=== PATIENT | female | born 1995 | race Caucasian/White ===

== ENCOUNTER → 2019-07-04 | Outpatient (CLI) | payer SELFPAY | PROVIDERS: Family Provider Nurse Practitioner Family; Visit Provider Nurse Practitioner Family | DX: N63.0 Unspecified lump in unspecified breast (principal) | CPT/HCPCS: 77066 ==

== ENCOUNTER 2019-08-03 16:37 | Outpatient (CLI) | payer OTHER, SELFPAY ==
[2019-08-03 17:28] LABS: Thyroid Stimulating Hormone 1.89 uIU/mL (0.27-4.20)
== END 2019-08-03 16:38 | disposition home or self-care (01) ==
PROVIDERS: Family Provider Nurse Practitioner Family; PCP Nurse Practitioner Family; Visit Provider Nurse Practitioner Family
DX: E03.9 Hypothyroidism, unspecified (principal)
CPT/HCPCS: 84443

== ENCOUNTER 2019-10-20 12:06 | Outpatient (CLI) | payer OTHER, SELFPAY ==
[2019-10-20 12:57] LABS: Thyroid Stimulating Hormone 3.02 uIU/mL (0.27-4.20)
== END 2019-10-20 12:07 | disposition home or self-care (01) ==
LOC: LAB 12:07
PROVIDERS: Family Provider Nurse Practitioner Family; PCP Nurse Practitioner Family; Visit Provider Nurse Practitioner Family
DX: E03.9 Hypothyroidism, unspecified (principal)
CPT/HCPCS: 36415; 84443

== ENCOUNTER 2019-12-13 07:54 | Outpatient (CLI) | payer OTHER, SELFPAY ==
[2019-12-13 08:18] LABS: Hemoglobin 13.8 g/dL (11.5-15.3); Mean Corpuscular HGB Conc 32.1 g/dL (30.0-36.0); Mean Corpuscular Volume 90.3 fL (81-99); Mean Platelet Volume 9.4 fL (7.4-10.4); Platelet Count 335 10^3/cmm (130-400); Red Blood Count 4.76 10^6/uL (4.1-5.3); Red Cell Distribution Width 13.2 % (12.1-15.1)
[2019-12-13 08:40] LABS: Alanine Aminotransferase 10 U/L (0-33); Albumin Level 3.8 g/dL (3.5-5.2); Alkaline Phosphatase 77 IU/L (35-105); Aspartate Amino Transferase 11 U/L (0-32); Blood Urea Nitrogen 11 mg/dL (6-20); Calcium 9.6 mg/dL (8.5-10.5); Carbon Dioxide 26 mmol/L (22-29); Chloride 101 mmol/L (98-107); Globulin 3.2 g/dL (1.3-4.6); Glomerular Filtration Rate 101.1 mL/min (90-130); Glucose 92 mg/dL (65-115); Magnesium 1.9 mg/dL (1.7-2.3); Osmolality Calculated 280 mOsm/kg (285-295); Sodium 137 mmol/L (136-145); Thyroid Stimulating Hormone 4.03 uIU/mL (0.27-4.20); Total Bilirubin 0.2 mg/dL (0.15-1.2)
[2019-12-13 08:41] LABS: Estmated Average Glucose 100; Hemoglobin A1C 5.1 % (4.0-6.0)
[2019-12-13 10:00] LABS: Absolute Segmented Neutrophil 6.5 10/cmm (1.6-7.1); Band Neutrophils Absolute 0.1 10^3/cmm (0.0-1.2); Lymphocytes 31 %; Segmented Neutrophils 65 %; Total Cells Counted 100 (0-100)
[2019-12-13 10:01] LABS: Absolute Neutrophil 6.6 10^3/cmm (1.4-6.5); Lymphocytes Absolute 3.2 10^3/cmm (1.2-3.4); Monocytes Absolute 0.2 10^3/cmm (0.1-0.6); Platelet Estimate Normal (Normal)
== END 2019-12-13 07:55 | disposition home or self-care (01) ==
LOC: LAB 07:59
PROVIDERS: Family Provider Nurse Practitioner Family; PCP Nurse Practitioner Family; Visit Provider Nurse Practitioner Family
DX: E03.9 Hypothyroidism, unspecified (principal); E83.42 Hypomagnesemia; Z79.899 Other long term (current) drug therapy; K59.04 Chronic idiopathic constipation; M48.061 Spinal stenosis, lumbar region without neurogenic claudication; R00.0 Tachycardia, unspecified
CPT/HCPCS: 80053; 83036; 83735; 84443; 85007; 85027

== ENCOUNTER → 2020-02-02 11:31 | Outpatient (BNVA) | payer OTHER, SELFPAY | PROVIDERS: Family Provider Nurse Practitioner Family; PCP Nurse Practitioner Family; Visit Provider Nurse Practitioner Family | DX: E03.9 Hypothyroidism, unspecified (principal) | CPT/HCPCS: 84443 ==

== ENCOUNTER → 2020-02-23 15:44 | Outpatient (BNVA) | payer OTHER, SELFPAY | PROVIDERS: Family Provider Nurse Practitioner Family; PCP Nurse Practitioner Family; Visit Provider Nurse Practitioner Family | DX: M79.671 Pain in right foot (principal) | CPT/HCPCS: 73630 ==

== ENCOUNTER → 2020-03-27 09:11 | Outpatient (BNVA) | payer OTHER, SELFPAY | PROVIDERS: Family Provider Nurse Practitioner Family; PCP Nurse Practitioner Family; Visit Provider Nurse Practitioner Family | DX: E03.9 Hypothyroidism, unspecified (principal); D64.9 Anemia, unspecified | CPT/HCPCS: 82607; 82728; 83550; 83921; 84443 ==

== ENCOUNTER → 2020-06-06 15:24 | Outpatient (BNVA) | payer OTHER, SELFPAY | PROVIDERS: Family Provider Nurse Practitioner Family; PCP Nurse Practitioner Family; Visit Provider Podiatrist Foot & Ankle Surgery | DX: M25.571 Pain in right ankle and joints of right foot (principal) | CPT/HCPCS: 73620; 73630 ==

== ENCOUNTER 2020-06-07 16:06 | Outpatient (CLI) | payer OTHER, SELFPAY ==
--- NOTE | 2020-06-07 16:17 | XRR_ITS ---
PROCEDURE INFORMATION: Exam: XR Cervical Spine, 2 or 3 Views Exam date and time: 06/07/2020 4:27 PM Age: 25 years old Clinical indication: Pain; Cervicalgia; Additional info: M54.2 - cervicalgia TECHNIQUE: Imaging protocol: XR of the cervical spine, 2 or 3 views. COMPARISON: CR Cervical Spine AP/Lat* [id number] 11/24/2013 11:14 AM FINDINGS: Bones/joints: Three views of the cervical spine including flexion neutral and extension in the lateral projection. No fracture or other acute abnormalities are seen. There is no malalignment. There are no significant degenerative changes. Soft tissues: Unremarkable. XR/XR cervical spine fl/ex [id number] IMPRESSION: Normal
== END 2020-06-07 16:07 | disposition home or self-care (01) ==
PROVIDERS: PCP Nurse Practitioner Family; Visit Provider Nurse Practitioner Family
DX: M54.2 Cervicalgia (principal)
CPT/HCPCS: 72040; 84443

== ENCOUNTER 2020-07-12 14:30 | Outpatient (CLI) | payer OTHER, SELFPAY ==
[2020-07-12 15:23] LABS: NT Pro B Type Natriuretic Pept 50 pg/mL (0-125)
== END 2020-07-12 14:31 | disposition home or self-care (01) ==
PROVIDERS: PCP Nurse Practitioner Family; Visit Provider Internal Medicine Cardiovascular Disease
DX: R00.0 Tachycardia, unspecified (principal); R60.9 Edema, unspecified
CPT/HCPCS: 36415; 83880

== ENCOUNTER 2020-08-01 14:19 | Outpatient (CLI) | payer OTHER, SELFPAY ==
[2020-08-01 15:17] LABS: Free T4 Free Thyroxine 1.44 ng/dL (0.82-1.77); Thyroid Stimulating Hormone 1.28 uIU/mL (0.27-4.20)
[2020-08-02 13:58] LABS: Thyroglobulin AB 3 IU/mL (< or = 1); Thyroid Peroxidase Antobodies 144 IU/mL (<9)
== END 2020-08-01 14:20 | disposition home or self-care (01) ==
PROVIDERS: PCP Nurse Practitioner Family; Visit Provider Internal Medicine
DX: E03.9 Hypothyroidism, unspecified (principal); E28.2 Polycystic ovarian syndrome; E66.01 Morbid (severe) obesity due to excess calories; Z68.41 Body mass index [BMI] 40.0-44.9, adult; G43.909 Migraine, unspecified, not intractable, without status migrainosus; I47.1 Supraventricular tachycardia; R63.5 Abnormal weight gain
CPT/HCPCS: 84439; 84443; 86376; 86800; 99205

== ENCOUNTER 2020-08-08 09:17 | Outpatient (CLI) | payer OTHER, SELFPAY ==
--- NOTE | 2020-08-08 11:17 | XR_ITS ---
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 Findings: No fractures or dislocations are seen. The SI joints and pubic symphysis are intact. The soft tissues are not remarkable. The hips are not remarkable. There is minimal osteoarthritic change at the L4-L5 vertebral level on t he left. XR/XR pelvis 1-2V* [id number] Impression: Negative pelvis.
[2020-08-08 11:27] LABS: Basophils % 0.3 %; Eosinophils # 0.1 10^3/uL (0.0-0.8); Hematocrit 43.4 % (37.0-47.0); Hemoglobin 13.9 g/dL (11.5-15.3); Lymphocytes % 28.6 %; Mean Corpuscular Hemoglobin 29.1 pg (28.0-34.0); Mean Platelet Volume 9.2 fL (7.4-10.4); Monocytes # 0.5 10^3/uL (0.2-0.9); Monocytes % 4.5 %; Neutrophils # 6.79 10^3/uL (1.8-7.7); Neutrophils % 65.2 %; Nucleated Red Blood Cells % 0 %; Platelet Count 324 10^3/cmm (130-400); Red Blood Count 4.77 10^6/uL (4.1-5.3); Red Cell Distribution Width 13.3 % (12.1-15.1); White Blood Count 10.4 10^3/uL (4.0-10.0)
[2020-08-08 12:19] LABS: Hepatitis B Core AB, Total Non-Reactive (Nonreactive); Hepatitis B Surface Antigen Non-Reactive (Nonreactive); Hepatitis C Virus Antibody Non-Reactive (Nonreactive)
[2020-08-08 12:22] LABS: 25 Hydroxy Vitamin D 31 ng/mL (30-100); Alanine Aminotransferase 19 U/L (0-33); Alkaline Phosphatase 100 IU/L (35-105); Aspartate Amino Transferase 14 U/L (0-32); C Reactive Protein 7.7 mg/L (0.0-4.9); Total Bilirubin 0.3 mg/dL (0.15-1.2)
[2020-08-08 12:40] LABS: Erythrocyte Sedimentation Rate 19 mm/hr (0-15)
[2020-08-09 14:08] LABS: Cyclic Citrullinated Peptide <16 UNITS
[2020-08-09 15:08] LABS: Anti-Nuclear Antibody Screen NEGATIVE (NEGATIVE)
[2020-08-10 14:38] LABS: Quantiferon Mitogen 9.35 IU/mL; Quantiferon Nil 0.01 IU/mL; Quantiferon Plus TB1 0.01 IU/mL; Quantiferon Plus TB2 0.02 IU/mL; Quantiferon TB Gold NEGATIVE (NEGATIVE)
[2020-08-12 17:17] LABS: HLA-B27 NEGATIVE (NEGATIVE)
== END 2020-08-08 09:18 | disposition home or self-care (01) ==
PROVIDERS: PCP Nurse Practitioner Family; Visit Provider Internal Medicine Rheumatology
DX: M25.50 Pain in unspecified joint (principal); M77.8 Other enthesopathies, not elsewhere classified; Z79.899 Other long term (current) drug therapy; Z11.1 Encounter for screening for respiratory tuberculosis; Z11.59 Encounter for screening for other viral diseases; M54.89 Other dorsalgia; M47.816 Spondylosis without myelopathy or radiculopathy, lumbar region; E06.3 Autoimmune thyroiditis
CPT/HCPCS: 36415; 72170; 80076; 82306; 82565; 85025; 85651; 86038; 86140; 86431; 86480; 86704; 86803; 86812; 87340; 99204

== ENCOUNTER 2020-08-14 00:51 | Emergency (ER) | payer OTHER, SELFPAY ==
[2020-08-14 01:01] VITALS: BP 126/99; PULSE 118; RESP 20; TEMP 37; O2SAT 98; BMI 44.3
--- NOTE | 2020-08-14 01:06 | ED_ITS ---
HPI - Abdominal Pain General: Chief Complaint: Abdominal Pain Stated Complaint: body aches, stomach pain Time Seen by Provider: 08/14/20 00:59 History of Present Illness: HPI narrative: Patient is a 25-year-old female comes to the ED with abdominal pain and body aches. Patient has a past medical history of of Josiah's thyroiditis, degenerative joint disease of the lumbar spine, inflammatory back pain and arthritis, morbid obesity, PCOS, SVT, migraines and chronic constipation. Patient says symptoms started yesterday. Abdominal pain is described as sharp stabbing pain and is generalized throughout her abdomen. Pain is episodic and gets worse after she eats or drinks anything. She rates her current level of pain a 5 out of 10. Patient did just start taking sulfasalazine approximately 3 to 4 days ago. Her PCP put her on sulfasalazine because he is working her up for an autoimmune disorder. Body aches are generalized all throughout her body and those started today. Endorses some constipation but says that more of a chronic issue. She endorses nausea and constipation. Last bowel movement was yesterday and was small. Denies fever, chills, shortness of breath, chest pain, history of DVTs, PE or blood clots. Patient does have history of tachycardia that she is currently seeing Dr. Branham about and tachycardia is currently being monitored with loop recorder. Patient also endorsed some dysuria yesterday but her symptoms have resolved today and does not currently have any hematuria or dysuria. Associated Symptoms: Reports constipation, dysuria (A couple days ago but it since resolved.) and nausea; Denies chills, diarrhea, fever(s), hematochezia, hematuria and vomiting Review of Systems Const: Reports: body aches and change in appetite (decreased); Denies: fever(s), chills or fatigue Eyes: Denies: change in vision or eye discomfort ENMT: Denies: throat pain, odynophagia, nasal discharge or nasal congestion Card: Denies: chest pain, palpitations, edema, swelling of feet/ankles, dyspnea on exertion or orthopnea Resp: Denies: dyspnea, productive cough or non-productive cough GI: Reports: abdominal pain, nausea and constipation; Denies: vomiting, diarrhea or hematochezia : Reports: dysuria (A couple days ago but it since resolved.); Denies: flank pain or hematuria Musc: Denies: neck pain, back pain or extremity swelling Skin/Breast: Denies: rash or new lesions Neuro: Denies: headache(s), numbness in extremities or weakness in extremities PFSH ED PFSH: Medical History Cervical spine pain Chronic idiopathic constipation DDD (degenerative disc disease), lumbosacral Degenerative joint disease (DJD) of lumbar spine Environmental and seasonal allergies GERD (gastroesophageal reflux disease) Josiah's thyroiditis High risk medication use Hypothyroid Inflammatory arthritis Inflammatory back pain Low serum vitamin B12 Migraine Mild intermittent asthma Nasal congestion Otitis externa Otitis media Spinal stenosis, lumbar Subcutaneous nodule of breast SVT (supraventricular tachycardia) Tachycardia Surgical History History of back surgery History of implantable cardioverter-defibrillator (ICD) insertion Hx of colonoscopy with polypectomy Family History Mother Diabetes Josiah's disease Ankylosing spondylitis Fibromyalgia Hypertension PCOS (polycystic ovarian syndrome) Father Hypertension Sister PCOS (polycystic ovarian syndrome) Other Cancer Lung disease Denies family history of Rheumatoid arthritis Lupus Chronic kidney disease (CKD) Stroke Social History Smoking and tobacco status: never smoked Alcohol intake: never History of recent travel: No Physical Exam Const: COMMON NORMALS: no acute distress, patient oriented x3 and alert GENERAL APPEARANCE: cooperative and comfortable NUTRITIONAL APPEARANCE: obese HENMT: COMMON NORMALS: normocephalic HEAD & SCALP: normocephalic MOUTH: Normal oral and palatal mucosa present THROAT: posterior oropharynx normal and uvula midline Eye: COMMON NORMALS: Equal, round and reactive pupils present PUPIL: Yes Equal, round and reactive pupils present Neck/C-Spine: COMMON NORMALS: supple GENERAL: Yes normal visual inspection Resp: COMMON NORMALS: normal respiratory effort, No retractions, No use of accessory muscles and clear to auscultation bilaterally AUSCULTATION: clear to auscultation bilaterally Cardio: COMMON NORMALS: regular rate, regular rhythm, S1 normal heart sound present, S2 normal heart sound present, No gallops present (Cardio), No clicks present (Cardio), No murmurs present (Cardio) and Peripheral pulses 2+ throughout RATE: regular rate RHYTHM: regular rhythm HEART SOUNDS: S1 normal heart sound present and S2 normal heart sound present PERIPHERAL PULSES: Peripheral pulses 2+ throughout GI: COMMON NORMALS: Normal to inspection, nondistended, normoactive bowel sounds present, Soft to palpation, non-tender and no masses INSPECTION: Yes central obesity PALPATION: Yes Soft to palpation OTHER: Patient has no abdominal tenderness upon light and deep palpation. Negative Vidales's sign and negative McBurney's point tenderness. : COMMON NORMALS: Yes no CVA tenderness BLADDER/KIDNEY EXAM: Yes no CVA tenderness Back/Pelvis: COMMON NORMALS: no CVA tenderness Extremity: COMMON NORMALS: normal to inspection and no pedal edema Neuro: COMMON NORMALS: patient oriented x3 SENSORIUM/ORIENTATION: Yes alert GAIT: Yes Normal gait present Skin: GENERAL SKIN EXAM: dry skin Course Vital Signs: Vital signs: Vital Signs Temperature 98.6 F 08/14/20 01:01 Pulse Rate 118 H 08/14/20 01:38 Respiratory Rate 16 08/14/20 01:38 Blood Pressure 134/95 08/14/20 01:38 Pulse Oximetry 99 08/14/20 01:38 MDM - Abdominal Pain MDM Narrative: Medical decision making narrative: Patient is a 25-year-old female comes to the ED with abdominal pain, nausea and body aches. She also endorses chronic constipation. Patient has a past medical history of Josiah's thyroiditis, degenerative joint disease of lumbar spine, inflammatory back pain and inflammatory arthritis, PCOS, morbid obesity and SVT. Patient was just started on sulfasalazine approximately 3 to 4 days ago and her symptoms of nausea, body aches, abdominal pain are possible side effects of this medication. Exam findings unremarkable. Patient appears nontoxic and not in any acute distress. Patient has a centrally obese abdomen. No abdominal tenderness in all 4 of the quadrants upon light and deep palpation. Negative Vidales sign and negative McBurney's point. CBC and CMP were unremarkable. UA was unremarkable.. Lipase [address] of abdomen abdomen showed no acute findings. Patient symptoms likely due to sulfasalazine side effects or adverse reaction. Patient was given IV Solu-Medrol here in the ED and discharged home with a Medrol Dosepak prescription to use if she is having a reaction to medication. she was instructed to contact her testing shaking shipping tomorrow morning to discuss recent symptoms after starting sulfasalazine. Business Process Consultant can decide what he wants patient to do with sulfasalazine med. She was instructed to take Benadryl when she got home tonight. Return to ED precautions given. Patient understood and agree with plan. Lab Data: Attestation: I reviewed the patient's lab results. Labs: Lab Results 08/14/20 08/14/20 08/14/20 Range/Units 01:35 01:35 01:35 WBC 9.9 (4.0-10.0) 10^3/ uL RBC 5.28 (4.1-5.3) 10^6/u L Hgb 15.6 H (11.5-15.3) g/dL Hct 47.5 H (37.0-47.0) % MCV 90.0 (81-99) fL MCH 29.5 (28.0-34.0) pg MCHC 32.8 (30.0-36.0) g/dL RDW 13.2 (12.1-15.1) % Plt Count 305 (130-400) 10^3/c mm MPV 9.1 (7.4-10.4) fL Neut % (Auto) 84.6 % Lymph % (Auto) 10.3 % [place] % (Auto) 4.1 % Eos % (Auto) 0.5 % Baso % (Auto) 0.2 % Neut # (Auto) 8.34 H (1.8-7.7) 10^3/u L Lymph # (Auto) 1.0 (0.8-4.8) 10^3/u L [place] # (Auto) 0.4 (0.2-0.9) 10^3/u L Eos # (Auto) 0.1 (0.0-0.8) 10^3/u L Baso # (Auto) 0.0 (0.0-0.1) 10^3/u L Nucleated RBC % (a uto) 0 % Nucleated RBCs # 0.0 /100WBC Sodium 137 (136-145) mmol/L Potassium 3.7 (3.5-5.1) mmol/L Chloride 100 (98-107) mmol/L Carbon Dioxide 28 (22-29) mmol/L Anion Gap 12.7 (5-19) BUN 13 (6-20) mg/dL Creatinine 0.6 (0.5-0.9) mg/dL GFR Calculation 119.9 (90-130) mL/min Glucose 88 (65-115) mg/dL Calculated Osmolal ity 284 L (285-295) mOsm/k g Calcium 8.8 (8.5-10.5) mg/dL Total Bilirubin 0.3 (0.15-1.2) mg/dL AST 14 (0-32) U/L ALT 22 (0-33) U/L Alkaline Phosphata se 123 H (35-105) IU/L Total Protein 7.3 (6.6-8.7) g/dL Albumin 4.1 (3.5-5.2) g/dL Globulin 3.2 (1.3-4.6) g/dL Lipase 19 (13-60) U/L HCG, Qual Negative (Negative) Urine Color (Yellow) Urine Appearance (CLEAR) Urine pH (5-7) Ur Specific Gravit y (1.005-1.030) Urine Protein (Negative) Urine Glucose (UA) (Normal) Urine Ketones (Negative) Urine Blood (Negative) Urine Nitrate (Negative) Urine Bilirubin (Negative) Urine Urobilinogen (Negative) mg/dL Ur Leukocyte Ligia ase (Negative) Urine RBC (0-2) /hpf Urine WBC (0-5) /hpf Ur Squamous Epith Cells (0-5) /hpf Amorphous Sediment Urine Bacteria (NONE) /hpf Urine Mucus /hpf 08/14/20 Range/Units 01:35 WBC (4.0-10.0) 10^3/ uL RBC (4.1-5.3) 10^6/u L Hgb (11.5-15.3) g/dL Hct (37.0-47.0) % MCV (81-99) fL MCH (28.0-34.0) pg MCHC (30.0-36.0) g/dL RDW (12.1-15.1) % Plt Count (130-400) 10^3/c mm MPV (7.4-10.4) fL Neut % (Auto) % Lymph % (Auto) % [place] % (Auto) % Eos % (Auto) % Baso % (Auto) % Neut # (Auto) (1.8-7.7) 10^3/u L Lymph # (Auto) (0.8-4.8) 10^3/u L [place] # (Auto) (0.2-0.9) 10^3/u L Eos # (Auto) (0.0-0.8) 10^3/u L Baso # (Auto) (0.0-0.1) 10^3/u L Nucleated RBC % (a uto) % Nucleated RBCs # /100WBC Sodium (136-145) mmol/L Potassium (3.5-5.1) mmol/L Chloride (98-107) mmol/L Carbon Dioxide (22-29) mmol/L Anion Gap (5-19) BUN (6-20) mg/dL Creatinine (0.5-0.9) mg/dL GFR Calculation (90-130) mL/min Glucose (65-115) mg/dL Calculated Osmolal ity (285-295) mOsm/k g Calcium (8.5-10.5) mg/dL Total Bilirubin (0.15-1.2) mg/dL AST (0-32) U/L ALT (0-33) U/L Alkaline Phosphata se (35-105) IU/L Total Protein (6.6-8.7) g/dL Albumin (3.5-5.2) g/dL Globulin (1.3-4.6) g/dL Lipase (13-60) U/L HCG, Qual (Negative) Urine Color Yellow (Yellow) Urine Appearance Hazy A (CLEAR) Urine pH 7 (5-7) Ur Specific Gravit y 1.010 (1.005-1.030) Urine Protein Neg (Negative) Urine Glucose (UA) Norm (Normal) Urine Ketones Negative (Negative) Urine Blood Neg (Negative) Urine Nitrate Negative (Negative) Urine Bilirubin Neg (Negative) Urine Urobilinogen Norm (Negative) mg/dL Ur Leukocyte Ligia ase Trace H (Negative) Urine RBC 0-4 H (0-2) /hpf Urine WBC 10-15 H (0-5) /hpf Ur Squamous Epith Cells 10-15 H (0-5) /hpf Amorphous Sediment Not Reportable Urine Bacteria 2+ H (NONE) /hpf Urine Mucus 1+ /hpf Imaging Data ^: CT Abd/Pel: Attestation: I personally reviewed and interpreted this imaging study as follows: Radiologist's impression: [facility] [place] [address] CT Scan Report Signed Patient: Branden Patel Unit #: [id number] : 1995 42 Age/Sex: 25 / F ADM Date: 08/14/20 Loc: ER Room/Bed: Attending Dr: Ordering Provider/Ordering MD: Aly Alvarado Date of Service: 08/14/20 Procedure(s): CT abdomen pelvis w con* [id number] Accession Number(s): [id number] Report Number: [id number] PROCEDURE INFORMATION: Exam: CT Abdomen And Pelvis With Contrast Exam date and time: 08/14/2020 1:49 AM Age: 25 years old Clinical indication: Abdominal pain; Generalized; Prior surgery; Surgery type: Lumbar discectomy; Patient HX: Maliase with upper abd pain and constipation; Additional info: Abdominal pain and constipation TECHNIQUE: Imaging protocol: Computed tomography of the abdomen and pelvis with contrast. Radiation optimization: All CT scans at this facility use at least one of these dose optimization techniques: automated exposure control; mA and/or kV adjustment per patient size (includes targeted exams where dose is matched to clinical indication); or iterative reconstruction. Contrast material: OMNI 300; Contrast volume: 95 ml; Contrast route: INTRAVENOUS (IV); COMPARISON: CR XR pelvis 1-2V* [id number] 08/08/2020 11:21 AM RADIATION DOSE METRICS: Total DLP (mGy-cm): 2010.13 FINDINGS: Liver: Normal. No mass. Gallbladder and bile ducts: Normal. No calcified stones. No ductal dilation. Pancreas: Normal. No ductal dilation. Spleen: Normal. No splenomegaly. Adrenal glands: Normal. No mass. Kidneys and ureters: Normal. No hydronephrosis. Stomach and bowel: Unremarkable. No obstruction. No mucosal thickening. Appendix: The appendix is normal. Intraperitoneal space: Unremarkable. No free air. No significant fluid collection. Vasculature: Unremarkable. No abdominal aortic aneurysm. Lymph nodes: Unremarkable. No enlarged lymph nodes. Urinary bladder: Unremarkable as visualized. Reproductive: The uterus and ovaries appear normal. A 3.8 cm right ovarian cyst is present. Bones/joints: Unremarkable. No acute fracture. Soft tissues: Unremarkable. CT/CT abdomen pelvis w con* [id number] IMPRESSION: No acute abnormality is seen in the abdomen or pelvis. Radiation Dose CTDIVOL = (mGy): DLP = 2010.13 (mGy-cm) Dictated By: Jose F Wesley MD Signed By: Jose F Wesley MD Signed Date/Time: 08/14/20299 DD/ 7 Discharge Plan Discharge Patient Disposition: Home Clinical Impression: Medication adverse effect Qualifiers: Encounter type: initial encounter Qualified Code(s): T50.905A - Adverse effect of unspecified drugs, medicaments and biological substances, initial encounter Condition: Stable Prescriptions: New Medrol (Des) 4 mg tablets,dose pack See Rx Instructions .ROUTE .COMPLEX Qty: 21 RF: 0 No Action albuterol sulfate [ProAir HFA] 90 mcg/actuation HFA aerosol inhaler 2 puff INHALATION Q6H PRNRF: 0 ibuprofen 800 mg tablet 800 mg PO Q8H PRNRF: 0 ondansetron HCl [Zofran] 4 mg tablet 4 mg PO Q8H RF: 0 diltiazem HCl [Cardizem LA] 180 mg tablet extended release 24 hr 180 mg PO DAILY Qty: 90 RF: 3 spironolactone 50 mg tablet 50 mg PO DAILY Qty: 90 RF: 3 tramadol 50 mg tablet 50 mg PO TID PRN (Reason: back pain) 30 Days Qty: 90 RF: 1 mometasone 50 mcg/actuation spray,non-aerosol 2 spray intranasal DAILY PRN (Reason: nasal congestion) Qty: 17 RF: 5 levothyroxine [Synthroid] 125 mcg tablet 125 mcg PO DAILY 30 Days Qty: 30 RF: 2 rdmkqknxla-fvnwmrivrvykw-cyla [Esgic] 50-325-40 mg capsule 1 - 2 cap PO Q6H PRN (Reason: headache) 30 Days Qty: 20 RF: 2 cyanocobalamin (vitamin B-12) 1,000 mcg/mL solution See Rx Instructions IM .every 2 weeks 30 Days Qty: 2 RF: 5 Zyrtec 10 mg capsule 10 mg PO DAILY RF: 0 krill oil 500 mg capsule PO RF: 0 zinc 50 mg tablet 50 mg PO DAILY RF: 0 ascorbate calcium (vitamin C) 500 mg tablet 500 mg PO DAILY RF: 0 melatonin 5 mg capsule PO RF: 0 diclofenac sodium 1 % gel 2 g topical QID Qty: 100 RF: 2 sulfasalazine 500 mg tablet 1 g PO BID Qty: 120 RF: 3 norethindrone (contraceptive) [Keeley] 0.35 mg tablet 0.35 mg PO DAILY RF: 0 montelukast [Singulair] 10 mg tablet 10 mg PO DAILY 90 Days Qty: 90 RF: 2 bumetanide 2 mg tablet 2 mg PO DAILY PRN (Reason: edema) Qty: 30 RF: 3 Aimovig Autoinjector 140 mg/mL auto-injector 140 mg SUBCUT .monthly 30 Days Qty: 1 RF: 2 pantoprazole 40 mg tablet,delayed release (DR/EC) See Rx Instructions .ROUTE .COMPLEX Qty: 30 RF: 4 Discharge Orders: Discharge ED (Routine); Ordered 08/14/20 Ordered By: Aly Alvarado Referrals: SHWETA Jameson, SKELP PROCESSOR [Primary Care Provider] - Discharge Diet: Advance as tolerated Discharge Activity: Increase activity as tolerated Patient Instructions: Adverse Drug Reaction (ED) Activity Restrictions/Additional Instructions: Follow-up with medical provider as directed. Contact your testing shaking shipping tomorrow morning and discuss with them about your recent symptoms since starting sulfasalazine and they can make the decision on stopping med, changing med or continuation of it. Take Benadryl when you get home tonight. Sending you with a Medrol Dosepak and he can decide whether to fill it or not after you talk with testing shaking shipping tomorrow. Take your previously prescribed Zofran to help with any nausea. Return to the ER or your medical provider if condition worsens. Please read and understand discharge instructions. If any questions, please ask. Coding Level of Care Code ED Patient Partner for Manohar Fwd Exam Comprehensive
[2020-08-14] MEDS: sodium chloride 0.9% 500 ML 999 ML IV (01:34)
[2020-08-14 01:38] VITALS: BP 134/95; PULSE 118; RESP 16; O2SAT 99
[2020-08-14 01:41] LABS: Basophils % 0.2 %; Eosinophils # 0.1 10^3/uL (0.0-0.8); Eosinophils % 0.5 %; Hematocrit 47.5 % (37.0-47.0); Hemoglobin 15.6 g/dL (11.5-15.3); Lymphocytes % 10.3 %; Mean Corpuscular HGB Conc 32.8 g/dL (30.0-36.0); Mean Corpuscular Hemoglobin 29.5 pg (28.0-34.0); Mean Platelet Volume 9.1 fL (7.4-10.4); Monocytes # 0.4 10^3/uL (0.2-0.9); Monocytes % 4.1 %; Neutrophils # 8.34 10^3/uL (1.8-7.7); Neutrophils % 84.6 %; Nucleated Red Blood Cells % 0 %; Platelet Count 305 10^3/cmm (130-400); Red Blood Count 5.28 10^6/uL (4.1-5.3); Red Cell Distribution Width 13.2 % (12.1-15.1); White Blood Count 9.9 10^3/uL (4.0-10.0)
--- NOTE | 2020-08-14 01:45 | CTR_ITS ---
PROCEDURE INFORMATION: Exam: CT Abdomen And Pelvis With Contrast Exam date and time: 08/14/2020 1:49 AM Age: 25 years old Clinical indication: Abdominal pain; Generalized; Prior surgery; Surgery type: Lumbar discectomy; Patient HX: Maliase with upper abd pain and constipation; Additional info: Abdominal pain and constipation TECHNIQUE: Imaging protocol: Computed tomography of the abdomen and pelvis with contrast. Radiation optimization: All CT scans at this facility use at least one of these dose optimization techniques: automated exposure control; mA and/or kV adjustment per patient size (includes targeted exams where dose is matched to clinical indication); or iterative reconstruction. Contrast material: OMNI 300; Contrast volume: 95 ml; Contrast route: INTRAVENOUS (IV); COMPARISON: CR XR pelvis 1-2V* [id number] 08/08/2020 11:21 AM RADIATION DOSE METRICS: Total DLP (mGy-cm): FINDINGS: Liver: Normal. No mass. Gallbladder and bile ducts: Normal. No calcified stones. No ductal dilation. Pancreas: Normal. No ductal dilation. Spleen: Normal. No splenomegaly. Adrenal glands: Normal. No mass. Kidneys and ureters: Normal. No hydronephrosis. Stomach and bowel: Unremarkable. No obstruction. No mucosal thickening. Appendix: The appendix is normal. Intraperitoneal space: Unremarkable. No free air. No significant fluid collection. Vasculature: Unremarkable. No abdominal aortic aneurysm. Lymph nodes: Unremarkable. No enlarged lymph nodes. Urinary bladder: Unremarkable as visualized. Reproductive: The uterus and ovaries appear normal. A 3.8 cm right ovarian cyst is present. Bones/joints: Unremarkable. No acute fracture. Soft tissues: Unremarkable. CT/CT abdomen pelvis w con* [id number] IMPRESSION: No acute abnormality is seen in the abdomen or pelvis. Radiation Dose CTDIVOL = (mGy): DLP = (mGy-cm)
[2020-08-14 01:46] LABS: Bilirubin Urine Neg (Negative); Blood Urine Neg (Negative); Glucose Urine UA Norm (Normal); Ketones Urine Negative (Negative); Leukocyte Esterase Urine Trace (Negative); Nitrate Urine Negative (Negative); Protein Urine Neg (Negative); Urine Appearance Hazy (CLEAR); Urine Color Yellow (Yellow); Urobilinogen Urine Norm (Negative); pH Urine 7 (5-7)
[2020-08-14 01:47] LABS: Add Urine Microscopic? YES
[2020-08-14 01:48] LABS: RBC Urine 0-4 /hpf (0-2)
[2020-08-14 01:49] LABS: Add Urine Culture? No; Bacteria Urine 2+ /hpf; Mucus Urine 1+ /hpf
[2020-08-14 01:51] LABS: HCG, Serum Qual Negative (Negative)
[2020-08-14 01:57] LABS: Alanine Aminotransferase 22 U/L (0-33); Albumin Level 4.1 g/dL (3.5-5.2); Alkaline Phosphatase 123 IU/L (35-105); Anion Gap 12.7 (5-19); Aspartate Amino Transferase 14 U/L (0-32); Blood Urea Nitrogen 13 mg/dL (6-20); Calcium 8.8 mg/dL (8.5-10.5); Carbon Dioxide 28 mmol/L (22-29); Chloride 100 mmol/L (98-107); Globulin 3.2 g/dL (1.3-4.6); Glomerular Filtration Rate 119.9 mL/min (90-130); Glucose 88 mg/dL (65-115); Lipase 19 U/L (13-60); Osmolality Calculated 284 mOsm/kg (285-295); Potassium 3.7 mmol/L (3.5-5.1); Sodium 137 mmol/L (136-145); Total Bilirubin 0.3 mg/dL (0.15-1.2); Total Protein 7.3 g/dL (6.6-8.7)
[2020-08-14] MEDS: iohexol 300 mg/mL 100 mL Btl IV (02:03)
[2020-08-14] MEDS: ondansetron 2 mg/ML SDV 2 mL 4 MG IVP (02:57)
[2020-08-14 03:31] VITALS: BP 129/86; PULSE 98; RESP 18; O2SAT 100
== END 2020-08-14 03:36 | disposition home or self-care (01) ==
PROVIDERS: Family Medicine; Emergency Provider Physician Assistant; PCP Nurse Practitioner Family
DX: R11.0 Nausea (principal); R10.9 Unspecified abdominal pain; T50.905A Adverse effect of unspecified drugs, medicaments and biological substances, initial encounter; Z79.1 Long term (current) use of non-steroidal anti-inflammatories (NSAID); K59.04 Chronic idiopathic constipation; M47.816 Spondylosis without myelopathy or radiculopathy, lumbar region
CPT/HCPCS: 12345; 74177; 80053; 81001; 83690; 84703; 85025; 96374; 96375; 99283; J2405; J2930; J7040; Q9967

== ENCOUNTER 2020-08-29 07:20 | Outpatient (CLI) | payer OTHER, SELFPAY ==
--- NOTE | 2020-08-29 07:24 | XR_ITS ---
WS: [id number] Exam: XR thoracic spine 3V* [id number] Date/Time of Exam: 08/29/2020 7:28 AM Reason For Exam: M47.816 - Spondylosis without myelopathy or radiculopathy, lumbar region Comparison with outside images performed 10/26/2014. No fracture or dislocation noted. Paraspinal soft tissues are unremarkable. The thoracic kyphosis is well-maintained. There is levoscoliosis of the visualized upper lumbar spine. XR/XR thoracic spine 3V* [id number] IMPRESSION: 1. Unremarkable thoracic spine study.
--- NOTE | 2020-08-29 07:24 | XR_ITS ---
WS: [id number] Exam: XR lumbar spine 2-3V* [id number] Date/Time of Exam: 08/29/2020 7:28 AM Reason For Exam: M47.816 - Spondylosis without myelopathy or radiculopathy, lumbar region Comparison with outside images performed 10/26/2014. No fracture or dislocation noted. Mild spondylosis. Slight narrowing of the L4-5 disc. Posterior zuni ents are otherwise intact. SI joints are open. Slight levoscoliosis. XR/XR lumbar spine 2-3V* [id number] IMPRESSION: 1. Minimal degenerative changes and slight scoliosis. 2. No fracture or malalignment.
[2020-08-29 07:40] LABS: Basophils % 0.3 %; Eosinophils # 0.1 10^3/uL (0.0-0.8); Eosinophils % 1.2 %; Hematocrit 42.8 % (37.0-47.0); Hemoglobin 13.8 g/dL (11.5-15.3); Lymphocytes % 20.7 %; Mean Corpuscular HGB Conc 32.2 g/dL (30.0-36.0); Mean Corpuscular Hemoglobin 29.1 pg (28.0-34.0); Mean Corpuscular Volume 90.3 fL (81-99); Mean Platelet Volume 9.2 fL (7.4-10.4); Monocytes # 0.6 10^3/uL (0.2-0.9); Monocytes % 6.5 %; Neutrophils # 6.77 10^3/uL (1.8-7.7); Neutrophils % 70.9 %; Nucleated Red Blood Cells % 0 %; Platelet Count 288 10^3/cmm (130-400); Red Blood Count 4.74 10^6/uL (4.1-5.3); Red Cell Distribution Width 13.2 % (12.1-15.1); White Blood Count 9.6 10^3/uL (4.0-10.0)
[2020-08-29 07:53] LABS: Add Urine Culture? No; Bacteria Urine 2+ /hpf; Bilirubin Urine Neg (Negative); Blood Urine Neg (Negative); Glucose Urine UA Norm (Normal); Ketones Urine Negative (Negative); Leukocyte Esterase Urine 2+ (Negative); Nitrate Urine Negative (Negative); Protein Urine Neg (Negative); Squamous Epithelial Cell Urine 15-25 /hpf (0-5); Urine Appearance SL Hazy (CLEAR); Urine Color Yellow (Yellow); Urobilinogen Urine Norm (Negative); pH Urine 5 (5-7)
[2020-08-29 08:00] LABS: Alanine Aminotransferase 22 U/L (0-33); Alkaline Phosphatase 101 IU/L (35-105); Anion Gap 10.3 (5-19); Aspartate Amino Transferase 13 U/L (0-32); Blood Urea Nitrogen 14 mg/dL (6-20); Calcium 9.4 mg/dL (8.5-10.5); Carbon Dioxide 28 mmol/L (22-29); Chloride 103 mmol/L (98-107); Globulin 3.1 g/dL (1.3-4.6); Glucose 87 mg/dL (65-115); Osmolality Calculated 284 mOsm/kg (285-295); Potassium 4.3 mmol/L (3.5-5.1); Sodium 137 mmol/L (136-145); Total Bilirubin 0.2 mg/dL (0.15-1.2); Total Protein 7.1 g/dL (6.6-8.7)
[2020-08-29 08:16] LABS: Vitamin B12 491 pg/mL (232-1245)
== END 2020-08-29 07:21 | disposition home or self-care (01) ==
PROVIDERS: PCP Nurse Practitioner Family; Visit Provider Internal Medicine Rheumatology
DX: M47.816 Spondylosis without myelopathy or radiculopathy, lumbar region (principal); M54.89 Other dorsalgia; R74.8 Abnormal levels of other serum enzymes; E53.8 Deficiency of other specified B group vitamins; Z87.440 Personal history of urinary (tract) infections
CPT/HCPCS: 36415; 72072; 72100; 80053; 81001; 82607; 85025

== ENCOUNTER 2020-08-30 11:25 | Emergency (ER) | payer OTHER, SELFPAY ==
[2020-08-30 11:35] VITALS: BP 144/96; PULSE 82; RESP 18; TEMP 36.8; O2SAT 98; BMI 45.8
--- NOTE | 2020-08-30 11:51 | W.ED.SKABFB ---
HPI - Skin/Abscess/Foreign Bdy General: Chief complaint: Skin/Abscess/Foreign Body Stated complaint: Lump in Rt breast Time Seen by Provider: 08/30/20 11:31 Source: patient Mode of arrival: ambulatory Limitations: no limitations History of Present Illness: HPI narrative: 25 year old female presents to the ED with rt breast lump, h/o fibrocystic disease, states she woke this morning with tender right breast, she noted a lump in her breast, no redness swelling or drainage per history. She has history of fibrocystic disease with diagnostic mammogram and ultrasound testing completed. States took ibuprofen for the pain, states pain is now better. Associated symptoms: Deny chills, fever(s), nausea or vomiting Review of Systems General: Reports: 10 or more systems reviewed and unremarkable except in HPI and below Const: Denies: fever(s), chills or diaphoresis Eyes: Denies: blurry vision or eye redness ENMT: Denies: throat pain, dental pain or disequilibrium Card: Denies: chest pain, palpitations or irregular heart rhythm Resp: Denies: dyspnea, productive cough, non-productive cough or wheezing GI: Denies: abdominal pain, nausea or vomiting : Denies: difficulty voiding or dysuria Musc: Denies: neck pain, back pain, joint pain or joint warmth Skin/Breast: Reports: skin tenderness, breast tenderness, breast pain, breast swelling and breast mass; Denies: rash, pruritus or changes in skin color Neuro: Denies: headache(s), weakness in extremities or behavioral changes Psych: Denies: anxiety, depression or irritability Carroll/Lymph: Denies: easy bruising PFSH ED PFSH: Medical History Cervical spine pain Chronic idiopathic constipation DDD (degenerative disc disease), lumbosacral Degenerative joint disease (DJD) of lumbar spine Environmental and seasonal allergies GERD (gastroesophageal reflux disease) Josiah's thyroiditis High risk medication use Hypothyroid Inflammatory arthritis Inflammatory back pain Low serum vitamin B12 Migraine Mild intermittent asthma Nasal congestion Otitis externa Otitis media Spinal stenosis, lumbar Subcutaneous nodule of breast SVT (supraventricular tachycardia) Tachycardia Surgical History History of back surgery History of implantable cardioverter-defibrillator (ICD) insertion Hx of colonoscopy with polypectomy Family History Mother Diabetes Josiah's disease Ankylosing spondylitis Fibromyalgia Hypertension PCOS (polycystic ovarian syndrome) Father Hypertension Sister PCOS (polycystic ovarian syndrome) Other Cancer Lung disease Denies family history of Rheumatoid arthritis Lupus Chronic kidney disease (CKD) Stroke Social History Smoking and tobacco status: never smoked Alcohol intake: never History of recent travel: No Physical Exam Const: COMMON NORMALS: no acute distress, patient oriented x3, healthy appearing and alert GENERAL APPEARANCE: cooperative, comfortable and well hydrated HENMT: COMMON NORMALS: normocephalic, Normal external nose present and moist oral mucous membranes HEAD & SCALP: normocephalic NOSE: Normal external nose present Eye: COMMON NORMALS: Equal, round and reactive pupils present and EOMs intact bilaterally GENERAL EYE: appearance normal, both eyes and all related structures PUPIL: Yes Equal, round and reactive pupils present Neck/C-Spine: COMMON NORMALS: full ROM and no lymphadenopathy GENERAL: Yes normal visual inspection and Yes trachea midline CERVICAL SPINE: Yes cervical ROM normal Lymph: LYMPHATIC: no lymphadenopathy noted Chest: COMMONS NORMALS: normal inspection of the chest, normal palpation of entire chest wall and normal inspection of the breasts CHEST: Yes Symmetrical chest wall rise and No localized rib tenderness with anteroposterior compression Breast/axilla inspection: Yes no chest deformity, asymmetry, normal contours, no nodules, masses, tenderness, Yes normal inspection of the breasts, No asymmetry and No skin changes BREAST/AXILLA PALPATION: Yes normal palpation of the axillae, Yes normal palpation of the breasts (left), Yes no axillary lymphadenopathy, No abnormal palpation of the axilla, Yes abnormal palpation of the breast (rt breast, 2 cm from nipple; 9 oclock, 1 cm tender nodule, not able define ) and Yes breast lump NIPPLE/AREOLA: Yes nipples/areola normal, No areola abnormal and No nipple discharge Resp: COMMON NORMALS: normal respiratory effort, No retractions, No use of accessory muscles and clear to auscultation bilaterally EFFORT & INSPECTION: Yes able to speak in complete sentences AUSCULTATION: clear to auscultation bilaterally, no wheezes and no bronchovesicular breath sounds Cardio: COMMON NORMALS: regular rhythm, S1 normal heart sound present, S2 normal heart sound present and Peripheral pulses 2+ throughout RHYTHM: regular rhythm HEART SOUNDS: S1 normal heart sound present and S2 normal heart sound present PERIPHERAL PULSES: Peripheral pulses 2+ throughout GI: COMMON NORMALS: Soft to palpation and non-tender INSPECTION: Yes normal to inspection PALPATION: Yes Soft to palpation : COMMON NORMALS: Yes no CVA tenderness BLADDER/KIDNEY EXAM: Yes no CVA tenderness Back/Pelvis: COMMON NORMALS: no CVA tenderness and thoracic and lumbar spine normal to inspection Extremity: COMMON NORMALS: normal to inspection and capillary refill normal Neuro: COMMON NORMALS: patient oriented x3 and no focal motor deficits SENSORIUM/ORIENTATION: Yes alert Psych: COMMON NORMALS: mental status grossly normal, Normal thought process present and cooperative ACTIVITY/MOTOR BEHAVIOR: Yes appropriate eye contact THOUGHT PROCESS: Normal thought process present Skin: COMMON NORMALS: no rashes or lesions noted and turgor normal GENERAL SKIN EXAM: no rashes or lesions noted and turgor normal Course Vital Signs: Vital signs: Vital Signs Temperature 98.2 F 08/30/20 11:35 Pulse Rate 87 08/30/20 11:56 Respiratory Rate 18 08/30/20 11:35 Blood Pressure 121/100 08/30/20 11:56 Pulse Oximetry 98 08/30/20 11:56 MDM - Skin/Abscess/Foreign Bdy MDM Narrative: Medical decision making narrative: Pleasant 25-year-old female patient presents to the emergency room with onset of right breast lump and tenderness upon awakening this morning. She has history of fibrocystic breast changes. Previous diagnostic mammogram with ultrasound series on several occasions due to fibrocystic breast disease. Ultrasound right breast ordered, discussed with radiology testing. Radiology advised outpatient ultrasound be completed at the same time diagnostic mammogram per preference of radiologist. I did not appreciate abscess, fever or redness/swelling that would need evaluation today. Patient agrees for outpatient follow-up. Order for diagnostic mammogram and ultrasound right breast completed with social service referral to assist with scheduling. Patient was advised to return to the emergency department if she developed redness fever or abscess concern. Verbalized understanding. Advised to continue ibuprofen. Discharge Plan Discharge Patient Disposition: Home Clinical Impression: Breast lump on right side at 9 o'clock position Fibrocystic breast disease Qualifiers: Laterality: right Qualified Code(s): N60.11 - Diffuse cystic mastopathy of right breast Condition: Stable Prescriptions: No Action albuterol sulfate [ProAir HFA] 90 mcg/actuation HFA aerosol inhaler 2 puff INHALATION Q6H PRNRF: 0 ibuprofen 800 mg tablet 800 mg PO Q8H PRNRF: 0 ondansetron HCl [Zofran] 4 mg tablet 4 mg PO Q8H RF: 0 diltiazem HCl [Cardizem LA] 180 mg tablet extended release 24 hr 180 mg PO DAILY Qty: 90 RF: 3 spironolactone 50 mg tablet 50 mg PO DAILY Qty: 90 RF: 3 mometasone 50 mcg/actuation spray,non-aerosol 2 spray intranasal DAILY PRN (Reason: nasal congestion) Qty: 17 RF: 5 levothyroxine [Synthroid] 125 mcg tablet 125 mcg PO DAILY 30 Days Qty: 30 RF: 2 [id number]-gaxujvgsxssqi-fnde [Esgic] 50-325-40 mg capsule 1 - 2 cap PO Q6H PRN (Reason: headache) 30 Days Qty: 20 RF: 2 cyanocobalamin (vitamin B-12) 1,000 mcg/mL solution See Rx Instructions IM .every 2 weeks 30 Days Qty: 2 RF: 5 Zyrtec 10 mg capsule 10 mg PO DAILY RF: 0 krill oil 500 mg capsule PO RF: 0 zinc 50 mg tablet 50 mg PO DAILY RF: 0 ascorbate calcium (vitamin C) 500 mg tablet 500 mg PO DAILY RF: 0 melatonin 5 mg capsule PO RF: 0 diclofenac sodium 1 % gel 2 g topical QID Qty: 100 RF: 2 norethindrone (contraceptive) [Keeley] 0.35 mg tablet 0.35 mg PO DAILY RF: 0 tramadol 50 mg tablet 50 mg PO TID PRN (Reason: back pain) 30 Days Qty: 90 RF: 1 montelukast [Singulair] 10 mg tablet 10 mg PO DAILY 90 Days Qty: 90 RF: 2 bumetanide 2 mg tablet 2 mg PO DAILY PRN (Reason: edema) Qty: 30 RF: 3 Aimovig Autoinjector 140 mg/mL auto-injector 140 mg SUBCUT .monthly 30 Days Qty: 1 RF: 2 pantoprazole 40 mg tablet,delayed release (DR/EC) See Rx Instructions .ROUTE .COMPLEX Qty: 30 RF: 4 ciprofloxacin HCl [Cipro] 250 mg tablet 250 mg PO BID 5 Days Qty: 10 RF: 0 Medrol (Des) 4 mg tablets,dose pack See Rx Instructions .ROUTE .COMPLEX Qty: 21 RF: 0 Discharge Orders: Discharge ED (Routine); Ordered 08/30/20 Ordered By: Andreia Brumfield Referrals: SHWETA Jameson, [employer]ER [Primary Care Provider] - Discharge Diet: Usual diet Discharge Activity: Resume usual activity Patient Instructions: Breast Pain, Breast Mass (ED), Opioid Safety Activity Restrictions/Additional Instructions: Diagnostic mammogram will be needed with right breast ultrasound, this will be scheduled as an outpatient, high school social science teacher will contact you with a follow-up appointment for testing. Continue ibuprofen to take as needed for pain Reduce amount of caffeine in diet to help with fibrocystic changes of the breast Return to the emergency department if you develop concerning symptoms such as redness drainage or fever. Coding Level of Care Code ED Collection Systems Technician for Manohar Fwjimmy Exam Comprehensive
[2020-08-30 11:56] VITALS: BP 121/100; PULSE 87; O2SAT 98
--- NOTE | 2020-08-30 15:06 | DCPLANNER ---
adult education manager had message to schedule an out patient mammogram for patient. adult education manager faxed order to centralized scheduling, will call for appointment information.
--- NOTE | 2020-09-03 07:50 | DCPLANNER ---
Patient has an outpatient mammogram scheduled for Sunday, September 13, 2020 at 11:45. Centralized scheduling will call patient with appointment information.
--- NOTE | 2020-09-19 14:47 | DCPLANNER ---
Appointment scheduled for 09.13.20 for a mammogram has been rescheduled for September.
--- NOTE | 2020-11-05 08:09 | DCPLANNER ---
Patient had an outpatient mammogram scheduled for 09.26.21 - patient did attend appointment.
== END 2020-08-30 12:18 | disposition home or self-care (01) ==
PROVIDERS: Emergency Provider Nurse Practitioner Family; PCP Nurse Practitioner Family
DX: N60.11 Diffuse cystic mastopathy of right breast (principal); N63.10 Unspecified lump in the right breast, unspecified quadrant
CPT/HCPCS: 99282

== ENCOUNTER → 2020-09-05 09:24 | Outpatient (BNVA) | payer OTHER, SELFPAY | PROVIDERS: PCP Nurse Practitioner Family; Visit Provider Family Medicine | DX: Z20.822 Contact with and (suspected) exposure to COVID-19 (principal) | CPT/HCPCS: 87635 ==

== ENCOUNTER 2020-09-26 10:33 | Outpatient (CLI) | payer OTHER, SELFPAY ==
--- NOTE | 2020-09-26 10:37 | MM_ITS ---
WS: [id number] DIAGNOSTIC RIGHT DIGITAL MAMMOGRAM WITH CAD RIGHT breast ultrasound, limited HISTORY: RIGHT BREAST CYST/NODULE 9 O'CLOCK 2 CM FROM NIPPLE COMPARISON: 07/04/2019 and 06/09/2019 Technique: CC, MLO and ML views. Spot compression RIGHT CC and MLO. Breast composition: There are scattered areas of fibroglandular density. Tubular nodular densities p resent within the RIGHT breast near 9-10 o'clock. This corresponds to the palpable abnormality. Simil ar findings were noted on the mammogram from 2019. RIGHT breast ultrasound, limited. Ultrasound directed to the lateral RIGHT breast. There is a mildly lobulated tubular structure within fluid level extending from 8-9 o'clock. The solid component is within the dependent portion and has no increased vascularity. A more focal solid nodule measures 9 x 9 x 7 mm. There was a similar fluid level within a tubular structure noted on the mammogram of 06/09/2019. MM/[place] [id number] IMPRESSION: BI-RADS: 2-Benign FOLLOW UP: See Report There is a dilated tubular structure with fluid level in the RIGHT breast near 8:00. Similar findings were noted on prior ultrasound from 06/09/2019. There is a solid component within the duct but no increase in size. The solid component has actually slightly decreased in size since that study. This is probably a du ct with ectasia and debris. As there is been no increase in size at this time n o biopsy recommended. Surgical consultation and removal may be necessary as the patient has had several prior infections which are probably related to this du ct.
== END 2020-09-26 10:34 | disposition home or self-care (01) ==
PROVIDERS: PCP Nurse Practitioner Family; Visit Provider Nurse Practitioner Family
DX: N63.15 Unspecified lump in the right breast, overlapping quadrants (principal)
CPT/HCPCS: 76642; 77065

== ENCOUNTER 2020-10-24 09:38 | Outpatient (CLI) | payer OTHER, SELFPAY ==
[2020-10-24 10:40] LABS: Free T4 Free Thyroxine 1.28 ng/dL (0.82-1.77); Thyroid Stimulating Hormone 0.99 uIU/mL (0.27-4.20)
== END 2020-10-24 09:39 | disposition home or self-care (01) ==
LOC: LAB 09:45
PROVIDERS: PCP Nurse Practitioner Family; Visit Provider Internal Medicine
DX: E03.9 Hypothyroidism, unspecified (principal)
CPT/HCPCS: 36415; 84439; 84443

== ENCOUNTER 2020-12-05 07:13 | Emergency (ER) | payer OTHER, SELFPAY ==
[2020-12-05 07:17] VITALS: BP 132/76; PULSE 82; RESP 18; TEMP 36.6; O2SAT 100; BMI 45.8
--- NOTE | 2020-12-05 07:18 | XR_ITS ---
WS: [id number] Right foot, 3 views, 12/05/2020 Clinical Data: pain Comparison: Right foot, 09/18/2020. Findings: No fractures or dislocations are seen. No bone destruction or erosion is noted. The joint spaces and soft tissues are normal. XR/XR foot RT min 3V* [id number] Impression: Negative right foot.
[2020-12-05 07:21] VITALS: BP 132/76; PULSE 82; RESP 18; O2SAT 100
--- NOTE | 2020-12-05 07:35 | W.ED.EXTPRO ---
HPI - Extremity Problem General: Chief complaint: Extremity Problem,Nontraumatic Stated complaint: RIGHT FOOT PAIN Time Seen by Provider: 12/05/20 07:16 History of Present Illness: HPI Narrative: Patient presents with right foot pain chronic is been going on for well over a month. She says is plantar fasciitis he had some red bumps on the bottom of her foot she would like to get checked out. She has been in contact with Dr. Lopez's office. Complaint: extremity pain Onset (ago): week(s) Pain Consistency: intermittent Location: right and lower extremity Quality: aching Relieving factors: nothing Associated symptoms: Deny chest pain, fever(s) or rash Review of Systems Narrative: Patient says that the insert makes her back hurt worse she cannot wear that. She has Voltaren cream but she is not been using that. Said injections did not help. Pain is worse in the morning when she first gets out of bed. Pain is consistently around the base of the heel Const: Denies: fever(s), chills or body aches Eyes: Denies: change in vision or blurry vision ENMT: Denies: throat pain or nasal congestion Card: Denies: chest pain or dyspnea on exertion Resp: Denies: dyspnea, productive cough or non-productive cough GI: Denies: abdominal pain, nausea or vomiting Musc: Reports: extremity pain (Right foot plantar fasciitis has pain around the heel and under the heel) Skin/Breast: Denies: rash Neuro: Denies: headache(s) Psych: Denies: anxiety or depression Carroll/Lymph: Denies: easy bruising PFSH ED PFSH: Medical History (Updated 12/05/20 @ 07:33 by NADIR Caballero) Breast inflammation Bronchitis Cervical spine pain Chronic idiopathic constipation Chronic pain disorder DDD (degenerative disc disease), lumbosacral Degenerative joint disease (DJD) of lumbar spine Environmental and seasonal allergies GERD (gastroesophageal reflux disease) Josiah's thyroiditis High risk medication use Hypothyroid Inflammatory arthritis Inflammatory back pain Low serum vitamin B12 Migraine Mild intermittent asthma Nasal congestion Otitis externa Otitis media Spinal stenosis, lumbar Subcutaneous nodule of breast SVT (supraventricular tachycardia) Tachycardia Surgical History History of back surgery History of implantable cardioverter-defibrillator (ICD) insertion Hx of colonoscopy with polypectomy Family History Mother Diabetes Josiah's disease Ankylosing spondylitis Fibromyalgia Hypertension PCOS (polycystic ovarian syndrome) Father Hypertension Sister PCOS (polycystic ovarian syndrome) Other Cancer Lung disease Denies family history of Rheumatoid arthritis Lupus Chronic kidney disease (CKD) Stroke Social History Smoking and tobacco status: never smoked Alcohol intake: never History of recent travel: No Physical Exam Const: COMMON NORMALS: no acute distress Extremity: NARRATIVE EXTREMITY EXAM: Mild tenderness about the right heel and where the plantar spur is located Psych: COMMON NORMALS: mental status grossly normal Skin: OTHER: No redness noted to the sole of the foot around the heel. Course Vital Signs: Vital signs: Vital Signs Temperature 97.8 F 12/05/20 07:17 Pulse Rate 82 12/05/20 07:21 Respiratory Rate 18 12/05/20 07:21 Blood Pressure 132/76 12/05/20 07:21 Pulse Oximetry 100 12/05/20 07:21 MDM - Extremity (Nontraumatic) MDM Narrative: Medical decision making narrative: Prescription was given for plantar fascia splints to wear. Was advised to use her Voltaren cream at least 3 times a day. To get custom orthopedic inserts made. Get proper footwear. Discharge Plan Discharge Patient Disposition: Home Clinical Impression: Plantar fasciitis of right foot Condition: Stable Prescriptions: No Action albuterol sulfate [ProAir HFA] 90 mcg/actuation HFA aerosol inhaler 2 puff INHALATION Q6H PRNRF: 0 ibuprofen 800 mg tablet 800 mg PO Q8H PRNRF: 0 ondansetron HCl [Zofran] 4 mg tablet 4 mg PO Q8H RF: 0 diltiazem HCl [Cardizem LA] 180 mg tablet extended release 24 hr 180 mg PO DAILY Qty: 90 RF: 3 spironolactone 50 mg tablet 50 mg PO DAILY Qty: 90 RF: 3 mometasone 50 mcg/actuation spray,non-aerosol 2 spray intranasal DAILY PRN (Reason: nasal congestion) Qty: 17 RF: 5 cyanocobalamin (vitamin B-12) 1,000 mcg/mL solution See Rx Instructions IM .every 2 weeks 30 Days Qty: 2 RF: 5 Zyrtec 10 mg capsule 10 mg PO DAILY RF: 0 krill oil 500 mg capsule PO RF: 0 zinc 50 mg tablet 50 mg PO DAILY RF: 0 ascorbate calcium (vitamin C) 500 mg tablet 500 mg PO DAILY RF: 0 melatonin 5 mg capsule PO RF: 0 diclofenac sodium 1 % gel 2 g topical QID Qty: 100 RF: 2 norethindrone (contraceptive) [Keeley] 0.35 mg tablet 0.35 mg PO DAILY RF: 0 hydroxychloroquine 200 mg tablet 200 mg PO BID Qty: 60 RF: 3 magnesium oxide 400 mg magnesium capsule 400 mg PO DAILY RF: 0 montelukast [Singulair] 10 mg tablet 10 mg PO DAILY 90 Days Qty: 90 RF: 2 wfkvtuoogq-aogcidyqrjucs-mcvq [Esgic] 50-325-40 mg capsule 1 - 2 cap PO Q6H PRN (Reason: headache) 30 Days Qty: 20 RF: 2 Linzess 290 mcg capsule 290 mcg PO DAILY 30 Days Qty: 30 RF: 2 atomoxetine [Strattera] 40 mg capsule 40 mg PO DAILY 30 Days Qty: 30 RF: 0 doxycycline monohydrate 100 mg capsule 100 mg PO BID 10 Days Qty: 20 RF: 0 Aimovig Autoinjector 140 mg/mL auto-injector 140 mg SUBCUT .monthly 30 Days Qty: 1 RF: 2 bumetanide 2 mg tablet 2 mg PO DAILY PRN (Reason: edema) Qty: 30 RF: 3 levothyroxine [Synthroid] 125 mcg tablet 125 mcg PO DAILY 30 Days Qty: 30 RF: 3 tramadol 50 mg tablet 50 mg PO TID PRN (Reason: back pain) 30 Days Qty: 90 RF: 1 pantoprazole 40 mg tablet,delayed release (DR/EC) See Rx Instructions .ROUTE .COMPLEX Qty: 90 RF: 1 Discharge Orders: Discharge ED (Routine); Ordered 12/05/20 Ordered By: Vince Foster Referrals: SHWETA Jameson, [employer] APPRENTICE [Primary Care Provider] - Discharge Diet: Usual diet Discharge Activity: Increase activity as tolerated Patient Instructions: Plantar Fasciitis Exercises (GEN) Activity Restrictions/Additional Instructions: Wear splint. Use Voltaren to the foot 3 times a day every day. Get customized inserts done at a store that does that. Follow-up Dr. Lopez. Coding Level of Care Code ED Security Technician for Manohar Burgos
[2020-12-05 07:50] VITALS: PULSE 87; RESP 18; O2SAT 98
== END 2020-12-05 07:51 | disposition home or self-care (01) ==
PROVIDERS: Emergency Provider Nurse Practitioner Family; PCP Nurse Practitioner Family
DX: M72.2 Plantar fascial fibromatosis (principal)
CPT/HCPCS: 73630; 99282

== ENCOUNTER 2021-01-09 07:13 | Outpatient (CLI) | payer OTHER, SELFPAY ==
[2021-01-09 08:03] LABS: Thyroid Stimulating Hormone 1.65 uIU/mL (0.27-4.20)
[2021-01-09 08:54] LABS: Free T4 Free Thyroxine 1.19 ng/dL (0.82-1.77)
== END 2021-01-09 07:14 | disposition home or self-care (01) ==
LOC: LAB 07:17
PROVIDERS: PCP Nurse Practitioner Family; Visit Provider Nurse Practitioner Family
DX: E03.9 Hypothyroidism, unspecified (principal)
CPT/HCPCS: 36415; 84439; 84443

== ENCOUNTER → 2021-01-24 12:03 | Outpatient (BNVA) | payer OTHER, SELFPAY | PROVIDERS: PCP Nurse Practitioner Family; Visit Provider Nurse Practitioner Family | DX: E55.9 Vitamin D deficiency, unspecified (principal); Z79.899 Other long term (current) drug therapy; E53.8 Deficiency of other specified B group vitamins; E07.9 Disorder of thyroid, unspecified | CPT/HCPCS: 81003; 82306; 82607; 83036 ==

== ENCOUNTER → 2021-02-25 13:38 | Outpatient (BNVA) | payer OTHER, SELFPAY | PROVIDERS: PCP Nurse Practitioner Family; Visit Provider Internal Medicine Rheumatology | DX: M19.90 Unspecified osteoarthritis, unspecified site (principal); Z79.899 Other long term (current) drug therapy; M47.816 Spondylosis without myelopathy or radiculopathy, lumbar region; E06.3 Autoimmune thyroiditis | CPT/HCPCS: 36415; 80076; 82565; 85025; 86140; 99214 ==

== ENCOUNTER 2021-03-03 12:46 | Outpatient (CLI) | payer OTHER, SELFPAY ==
[2021-03-03 13:51] LABS: Thyroid Stimulating Hormone 1.29 uIU/mL (0.27-4.20)
== END 2021-03-03 12:47 | disposition home or self-care (01) ==
PROVIDERS: PCP Nurse Practitioner Family; Visit Provider Nurse Practitioner Family
DX: E06.3 Autoimmune thyroiditis (principal)
CPT/HCPCS: 80048; 83880; 84443

== ENCOUNTER 2021-04-04 10:23 | Outpatient (CLI) | payer OTHER, SELFPAY ==
[2021-04-04 10:55] LABS: Basophils % 0.3 %; Eosinophils # 0.1 10^3/uL (0.0-0.8); Hematocrit 43.2 % (37.0-47.0); Hemoglobin 14.1 g/dL (11.5-15.3); Lymphocytes # 1.5 10^3/uL (0.8-4.8); Mean Corpuscular HGB Conc 32.6 g/dL (30.0-36.0); Mean Corpuscular Hemoglobin 29.7 pg (28.0-34.0); Mean Corpuscular Volume 91.1 fl (81-99); Mean Platelet Volume 10.2 fL (7.4-10.4); Monocytes # 0.5 10^3/uL (0.2-0.9); Monocytes % 7.5 %; Neutrophils # 3.97 10^3/uL (1.8-7.7); Nucleated Red Blood Cells % 0 %; Platelet Count 249 10^3/cmm (130-400); Red Blood Count 4.74 10^6/uL (4.1-5.3); Red Cell Distribution Width 12.5 % (12.1-15.1)
[2021-04-04 11:28] LABS: Alanine Aminotransferase 16 U/L (0-33); Albumin Level 3.7 g/dL (3.5-5.2); Alkaline Phosphatase 89 IU/L (35-105); Aspartate Amino Transferase 11 U/L (0-32); C Reactive Protein 4.7 mg/L (0.0-4.9); Globulin 2.5 g/dL (1.3-4.6); Glomerular Filtration Rate 119.9 mL/min (90-130); Total Bilirubin 0.3 mg/dL (0.15-1.2); Total Protein 6.2 g/dL (6.6-8.7)
== END 2021-04-04 10:24 | disposition home or self-care (01) ==
PROVIDERS: PCP Nurse Practitioner Family; Visit Provider Internal Medicine Rheumatology
DX: M19.90 Unspecified osteoarthritis, unspecified site (principal); Z79.899 Other long term (current) drug therapy
CPT/HCPCS: 36415; 80076; 82565; 85025; 86140

== ENCOUNTER 2021-04-05 10:41 | Outpatient (CLI) | payer OTHER, SELFPAY ==
--- NOTE | 2021-04-05 12:30 | US_ITS ---
WS: [id number] ABDOMINAL ULTRASOUND REASON FOR EXAM: R10.10 - Upper abdominal pain, unspecified TECHNIQUE: Grayscale and Doppler ultrasound examination of the abdomen. FINDINGS: Pancreas: No mass, calculus, or ductal dilatation. Abdominal aorta and IVC: Normal Liver: Liver measures 16.6 cm in length. Increased echogenicity. No focal lesion. Normal portal blood flow. Gallbladder: Gallbladder wall thickness measures 0.3 cm. No calculi identified. Common bile duct adelia ures 4 mm, within normal limits. Left kidney: Left kidney measures 10.2 cm x 3.9 cm x 5.2 cm. Left kidney cortex measures 1.2 cm. No m ass, calculus, or hydronephrosis. Normal blood flow Right kidney: Right kidney measures 10.3 cm x 4.8 cm x 5.6 cm. Right kidney cortex measures 1.5 cm. N o mass, calculus, or hydronephrosis. Normal blood flow Spleen: Spleen measures 9.6 cm x 4.2 cm x 3.9 cm. No focal lesion. US/US abdomen complete* [id number] IMPRESSION: Mild gallbladder wall thickening with no calculi. Likely fatty infiltration of the liver. Examination appears unchanged previous study of 03/30/2018.
== END 2021-04-05 10:42 | disposition home or self-care (01) ==
PROVIDERS: PCP Nurse Practitioner Family; Visit Provider Nurse Practitioner Family
DX: R10.10 Upper abdominal pain, unspecified (principal)
CPT/HCPCS: 76700

== ENCOUNTER 2021-04-05 10:43 | Outpatient (CLI) | payer OTHER, SELFPAY ==
--- NOTE | 2021-04-05 11:45 | USCV_ITS ---
Branden Patel Age: 25 Gender: F : 1995 Exam Date: 04/05/2021 11:56 Ordering Phys: Brenda Santamaria Technologist: Jeanine Grider Exam Location: [facility] [place] Indication: LOCALIZED EDEMA BP: 110 / 60 HR: 80 Rhythm: Sinus Technical Quality: Adequate MEASUREMENTS (Male / Female) Normal Values 2D ECHO LV Diastolic Diameter PLAX 4.7 cm 4.2 - 5.9 / 3.9 - 5.3 cm LV Systolic Diameter PLAX 3.8 cm IVS Diastolic Thickness 1.0 cm 0.6 - 1.0 / 0.6 - 0.9 cm IVS Systolic Thickness 1.3 cm LVPW Diastolic Thickness 1.4 cm 0.6 - 1.0 / 0.6 - 0.9 cm LVPW Systolic Thickness 1.5 cm RV Chamber Size 2.9 cm LVOT Diameter 2.0 cm LV Ejection Fraction 2D Teich 27.5 % LA Diameter 2.5 cm LA Width 3.2 cm LA Height 4.2 cm RA Width 3.4 cm RA Height 4.5 cm Aorta at Sinotubular Diameter 2.2 cm DOPPLER AV Peak Velocity 119.0 cm/s LVOT Peak Velocity 83.0 cm/s AV Area Cont Eq vti 2.3 cm squared AV Area Cont Eq pk 2.2 cm squared MV Area PHT 5.0 cm squared Mitral E to A Ratio 1.2 MV E' Velocity 56.5 cm/s Mitral E to MV E' Ratio 6.8 Mitral E to LV E' Lateral Ratio 6.9 Mitral E to LV E' Septal Ratio 6.7 TR Peak Velocity 177.0 cm/s TR Peak Gradient 12.5 mmHg TV Peak E Velocity 56.0 cm/s Right Atrial Pressure 3.0 mmHg Pulmonary Artery Systolic Pressu 15.5 mmHg PV Peak Velocity 83.0 cm/s RV Acceleration Time 0.1 s RV Ejection Time 0.3 s RV AcT/ET 0.4 FINDINGS Left Ventricle Normal left ventricular cavity size. Normal left ventricular systolic function. No regional wall motion abnormalities. Left ventricular ejection fraction is estimated at 65 %. Normal diastolic function. Right Ventricle The right ventricle is normal in size and function. Right Atrium The right atrium is normal in size. Left Atrium The left atrium is normal in size. Mitral Valve Structurally normal mitral valve without significant stenosis or prolapse. There is no mitral regurgitation. Aortic Valve Structurally normal aortic valve without significant sclerosis or stenosis. There is no aortic regurgitation. Tricuspid Valve Structurally normal tricuspid valve without significant stenosis or regurgitation. Pulmonary artery systolic pressure is normal. Pulmonic Valve Structurally normal pulmonic valve without significant stenosis. There is no pulmonic regurgitation. Pericardium Normal pericardium without effusion. Aorta Normal ascending aorta dimension. CONCLUSIONS 1. Normal left ventricular size, systolic function and wall thickness, with no regional wall motion abnormalities. Left ventricular ejection fraction is estimated at 65%. Normal left ventricular wall thickness. Normal diastolic filling pattern. 2. No significant chamber abnormalities. 3. No sigificant valve abnormalities. 4. There is no pericardial effusion. 5. There are no intracardiac masses. 6. Pulmonary artery systolic pressure is within normal limits. 7. Right atrial pressure is around 5 mm of mercury. 8. There are no prior echocardiogram studies to compare. Jesse Lopez MD (Electronically Signed) Final Date: 05 April 2021 13:58 S
== END 2021-04-05 10:44 | disposition home or self-care (01) ==
PROVIDERS: PCP Nurse Practitioner Family; Visit Provider Nurse Practitioner Family
DX: R60.0 Localized edema (principal)
CPT/HCPCS: 93306

== ENCOUNTER → 2021-05-21 14:52 | Outpatient (BNVA) | payer OTHER, SELFPAY | PROVIDERS: PCP Nurse Practitioner Family; Visit Provider Internal Medicine Rheumatology | DX: M25.50 Pain in unspecified joint (principal); M77.8 Other enthesopathies, not elsewhere classified; M47.816 Spondylosis without myelopathy or radiculopathy, lumbar region; E06.3 Autoimmune thyroiditis; Z79.899 Other long term (current) drug therapy; M54.89 Other dorsalgia | CPT/HCPCS: 99214 ==

== ENCOUNTER 2021-06-09 14:45 | Outpatient (CLI) | payer OTHER, SELFPAY ==
--- NOTE | 2021-06-09 15:15 | MR_ITS ---
WS: [id number] MRI BRAIN WITHOUT CONTRAST HISTORY: G43.909 - Migraine, unspecified, not intractable COMPARISON: None available. TECHNIQUE: Diffusion imaging, multiplanar T1, T2 and FLAIR imaging obtained. No evidence for acute infarct or hemorrhage. Choudhury-white matter differentiation is normal. No remote or acute infarcts are volume loss. Ventricles and extra-axial spaces are normal. No inferior displacement of cerebellar tonsils. The sella turcica and pituitary gland are unremarkabl e. Dural venous sinuses and [place] demonstrate no abnormality on this unenhanced studies. Paranasal sinuses: Clear. Mastoid air cells: Normal. Calvarium and scalp: Intact. MR/MR head wo con* [id number] IMPRESSION: 1. No infarct or signal abnormality. 2. Normal MRI brain.
== END 2021-06-09 14:46 | disposition home or self-care (01) ==
LOC: RADSHAW 14:48
PROVIDERS: PCP Nurse Practitioner Family; Visit Provider Nurse Practitioner Family
DX: G43.909 Migraine, unspecified, not intractable, without status migrainosus (principal)
CPT/HCPCS: 70551

== ENCOUNTER 2021-06-14 19:08 | Emergency (ER) | payer OTHER, SELFPAY ==
[2021-06-14 19:56] VITALS: BP 120/84; PULSE 83; RESP 18; TEMP 36.3; O2SAT 100; BMI 43.0
--- NOTE | 2021-06-14 23:19 | W.ED.GENADLT ---
HPI - General Adult General: Chief complaint: General Medical Stated complaint: swelling of the anus and excessive periodbleeding Time Seen by Provider: 06/14/21 22:57 History of Present Illness: HPI narrative: Patient is a 26-year-old female comes to the ED with anus swelling and blood in stool. She has been having the symptoms for the past 3 weeks. She was put on Aimovig for migraines and it caused her to get constipated and she has been taking stool softeners and probiotics to help with her constipation. red blood in her stools for the past 3 weeks. She also is having some rectal pain when having bowel movements. She says she will have some red blood in the toilet and when she wipes after BM. Bleeding stopped after BM. She also has rectal pain when she has a BM and endorses having some mild rectal pain throughout the day as well that she has been managing with preparation H suppositories. She endorses having some bilateral mild lower abdominal cramping pain right before BMs but it resolves immediately after BM. Denies any fever, chills, upper respiratory symptoms, shortness of breath, chest pain, nausea/vomiting, abdominal pain, bladder symptoms. Patient has an appointment with Dr. Soares to be evaluated for current complaint and to possibly set up a colonoscopy this coming week. Patient says her rectal pain currently is mild here in the ED and does not want or need any pain meds. Associated symptoms: Deny chest pain, dyspnea, headache(s), nausea, rash, palpitations or vomiting Review of Systems Const: Denies: fever(s), chills or fatigue Eyes: Denies: change in vision or eye discomfort ENMT: Denies: throat pain, odynophagia, nasal discharge or nasal congestion Card: Denies: chest pain, palpitations, edema, swelling of feet/ankles, dyspnea on exertion or orthopnea Resp: Denies: dyspnea, productive cough or non-productive cough GI: Reports: abdominal pain (Mild bilateral lower abdominal cramping before BM), pain on defecation, rectal pain, rectal swelling and hematochezia (red blood visible after BM and when she wipes); Denies: nausea, vomiting, diarrhea or constipation : Denies: flank pain, dysuria or hematuria Musc: Denies: neck pain, back pain or extremity swelling Skin/Breast: Denies: rash or new lesions Neuro: Denies: headache(s), numbness in extremities or weakness in extremities PFSH ED PFSH: Medical History Bilateral otitis media Breast inflammation Bronchitis Cervical spine pain Chronic idiopathic constipation Chronic pain disorder DDD (degenerative disc disease), lumbosacral Degenerative joint disease (DJD) of lumbar spine Environmental and seasonal allergies GERD (gastroesophageal reflux disease) Josiah's thyroiditis High risk medication use Hypothyroid Inflammatory arthritis Inflammatory back pain Low serum vitamin B12 Migraine Mild intermittent asthma Nasal congestion HADDAD (nonalcoholic steatohepatitis) Otitis externa Otitis media Shortness of breath Spinal stenosis, lumbar Subcutaneous nodule of breast SVT (supraventricular tachycardia) Tachycardia Upper abdominal pain Vitamin D deficiency Yeast dermatitis Surgical History History of back surgery History of implantable cardioverter-defibrillator (ICD) insertion Hx of colonoscopy with polypectomy Family History Mother Diabetes Josiah's disease Ankylosing spondylitis Fibromyalgia Hypertension PCOS (polycystic ovarian syndrome) CHF (congestive heart failure) Father Hypertension Sister PCOS (polycystic ovarian syndrome) Other Cancer Lung disease Denies family history of Rheumatoid arthritis Lupus Chronic kidney disease (CKD) Stroke Social History Alcohol intake: never History of recent travel: No Physical Exam Const: COMMON NORMALS: no acute distress, patient oriented x3 and alert GENERAL APPEARANCE: cooperative and comfortable NUTRITIONAL APPEARANCE: obese HENMT: COMMON NORMALS: normocephalic HEAD & SCALP: normocephalic MOUTH: Normal oral and palatal mucosa present THROAT: posterior oropharynx normal and uvula midline Eye: COMMON NORMALS: Equal, round and reactive pupils present PUPIL: Yes Equal, round and reactive pupils present Neck/C-Spine: COMMON NORMALS: supple GENERAL: Yes normal visual inspection Resp: COMMON NORMALS: normal respiratory effort, No retractions, No use of accessory muscles and clear to auscultation bilaterally AUSCULTATION: clear to auscultation bilaterally Cardio: COMMON NORMALS: regular rate, regular rhythm, S1 normal heart sound present, S2 normal heart sound present, No gallops present (Cardio), No clicks present (Cardio), No murmurs present (Cardio) and Peripheral pulses 2+ throughout RATE: regular rate RHYTHM: regular rhythm HEART SOUNDS: S1 normal heart sound present and S2 normal heart sound present PERIPHERAL PULSES: Peripheral pulses 2+ throughout GI: COMMON NORMALS: Normal to inspection, nondistended, normoactive bowel sounds present, Soft to palpation, non-tender and no masses PALPATION: Yes Soft to palpation RECTAL EXAM: External hemorrhoid(s) present OTHER: Female nurse was present patient account representative when performing visual inspection of rectum. Patient had some external hemorrhoids but no visible bleeding seen. Hemorrhoids were not thrombosed. : COMMON NORMALS: Yes no CVA tenderness BLADDER/KIDNEY EXAM: Yes no CVA tenderness Back/Pelvis: COMMON NORMALS: no CVA tenderness Extremity: COMMON NORMALS: normal to inspection Neuro: COMMON NORMALS: patient oriented x3 and moves all extremities SENSORIUM/ORIENTATION: Yes alert Skin: GENERAL SKIN EXAM: dry skin Course Vital Signs: Vital signs: Vital Signs Temperature 97.3 F L 06/14/21 19:56 Pulse Rate 81 06/15/21 01:06 Respiratory Rate 16 06/15/21 01:06 Blood Pressure 119/80 06/15/21 01:06 Pulse Oximetry 98 06/15/21 01:06 MDM - General Adult MDM Narrative: Medical decision making narrative: Patient is a 26-year-old female comes to the ED with hemorrhoids and some rectal pain. Issue has been going on for the past several months. She has red blood in the stool sometimes and BMs can be painful. Vitals stable. Exam is benign. I performed visual exam of the rectum with female nurse patient account representative present in the room. She has some visible external hemorrhoids but no signs of any thrombosed hemorrhoids or any visible bleeding seen. CBC and CMP were unremarkable. Patient was diagnosed with hemorrhoids and discharged home with prescription for Anusol cream. She was also tried on how to take sitz bath. Patient has an appointment for evaluation of hemorrhoids and rectal pain scheduled with Dr. Soares this week. Return to ED precautions given. Patient understood and agree with plan. Lab Data: Attestation: I reviewed the patient's lab results. Labs: Lab Results 06/14/21 06/14/21 06/14/21 23:17 23:17 23:17 WBC 11.1 10^3/uL H 10 ^3/uL (4.0-10.0) RBC 5.03 10^6/uL 10^6 /uL (4.1-5.3) Hgb 14.7 g/dL g/dL (11.5-15.3) Hct 44.9 % % (37.0-47.0) MCV 89.3 fl fl (81-99) MCH 29.2 pg pg (28.0-34.0) MCHC 32.7 g/dL g/dL (30.0-36.0) RDW 12.8 % % (12.1-15.1) Plt Count 283 10^3/cmm 10^3 /cmm (130-400) MPV 10.2 fL fL (7.4-10.4) Neut % (Auto) 64.1 % % Lymph % (Auto) 29.3 % % [place] % (Auto) 5.4 % % Eos % (Auto) 0.7 % % Baso % (Auto) 0.3 % % Neut # (Auto) 7.14 10^3/uL 10^3 /uL (1.8-7.7) Lymph # (Auto) 3.3 10^3/uL 10^3/ uL (0.8-4.8) [place] # (Auto) 0.6 10^3/uL 10^3/ uL (0.2-0.9) Eos # (Auto) 0.1 10^3/uL 10^3/ uL (0.0-0.8) Baso # (Auto) 0.0 10^3/uL 10^3/ uL (0.0-0.1) Nucleated RBC % (a uto) 0 % % Nucleated RBCs # 0.0 /100WBC /100W BC Sodium 139 mmol/L mmol/L (136-145) Potassium 3.7 mmol/L mmol/L (3.5-5.1) Chloride 101 mmol/L mmol/L (98-107) Carbon Dioxide 24 mmol/L mmol/L (22-29) Anion Gap 17.7 (5-19) BUN 10 mg/dL mg/dL (6-20) Creatinine 0.6 mg/dL mg/dL (0.5-0.9) GFR Calculation 119.0 mL/min mL/m in (90-130) Glucose 83 mg/dL mg/dL (65-115) Calculated Osmolal ity 286 mOsm/kg mOsm/ kg (285-295) Calcium 9.0 mg/dL mg/dL (8.5-10.5) Total Bilirubin 0.2 mg/dL mg/dL (0.15-1.2) AST 14 U/L U/L (0-32) ALT 24 U/L U/L (0-33) Alkaline Phosphata se 82 IU/L IU/L (35-105) Total Protein 6.8 g/dL g/dL (6.6-8.7) Albumin 4.3 g/dL g/dL (3.5-5.2) Globulin 2.5 g/dL g/dL (1.3-4.6) Lipase 18 U/L U/L (13-60) HCG, Qual Negative (Negative) Urine Color Urine Appearance Urine pH Ur Specific Gravit y Urine Protein Urine Glucose (UA) Urine Ketones Urine Blood Urine Nitrate Urine Bilirubin Urine Urobilinogen Ur Leukocyte Ligia ase 06/14/21 23:17 WBC RBC Hgb Hct MCV MCH MCHC RDW Plt Count MPV Neut % (Auto) Lymph % (Auto) [place] % (Auto) Eos % (Auto) Baso % (Auto) Neut # (Auto) Lymph # (Auto) [place] # (Auto) Eos # (Auto) Baso # (Auto) Nucleated RBC % (a uto) Nucleated RBCs # Sodium Potassium Chloride Carbon Dioxide Anion Gap BUN Creatinine GFR Calculation Glucose Calculated Osmolal ity Calcium Total Bilirubin AST ALT Alkaline Phosphata se Total Protein Albumin Globulin Lipase HCG, Qual Urine Color Yellow (Yellow) Urine Appearance Clear (CLEAR) Urine pH 5 (5-7) Ur Specific Gravit y 1.025 (1.005-1.030) Urine Protein Neg (Negative) Urine Glucose (UA) Norm (Normal) Urine Ketones Negative (Negative) Urine Blood Neg (Negative) Urine Nitrate Negative (Negative) Urine Bilirubin Neg (Negative) Urine Urobilinogen Norm mg/dL mg/dL (Negative) Ur Leukocyte Ligia ase Negative (Negative) Discharge Plan Discharge Patient Disposition: Home Clinical Impression: Hemorrhoids Qualifiers: Hemorrhoid type: unspecified Qualified Code(s): K64.9 - Unspecified hemorrhoids Condition: Stable Prescriptions: New Anusol-HC 2.5 % cream with perineal applicator 1 applic [place] TID PRN (Reason: hemorrhoids) Qty: 30 RF: 0 No Action ondansetron HCl [Zofran] 4 mg tablet 4 mg PO Q8H PRNRF: 0 cyanocobalamin (vitamin B-12) 1,000 mcg/mL solution See Rx Instructions IM .every 2 weeks 30 Days Qty: 2 RF: 5 Zyrtec 10 mg capsule 10 mg PO DAILY RF: 0 krill oil 500 mg capsule PO RF: 0 zinc 50 mg tablet 50 mg PO DAILY RF: 0 ascorbate calcium (vitamin C) 500 mg tablet 500 mg PO DAILY RF: 0 diclofenac sodium 1 % gel 2 g topical QID Qty: 100 RF: 2 diclofenac sodium 75 mg tablet,delayed release (DR/EC) 75 mg PO BID PRN (Reason: moderate to severe pain) Qty: 60 RF: 0 hydroxychloroquine 200 mg tablet 200 mg PO BID Qty: 60 RF: 3 cyclobenzaprine 10 mg tablet 10 mg PO TID PRN (Reason: prn severe muscle spasm) Qty: 30 RF: 0 leflunomide 20 mg tablet 20 mg PO DAILY Qty: 30 RF: 3 prednisone 10 mg tablet See Rx Instructions PO .COMPLEX PRN (Reason: joint pain) Qty: 30 RF: 1 Aimovig Autoinjector 140 mg/mL auto-injector 140 mg SUBCUT ONCE 30 Days Qty: 30 RF: 5 [id number]-zaaltzhzmqdex-qcca [Esgic] 50-325-40 mg capsule 1 - 2 cap PO Q6H PRN (Reason: headache) 30 Days Qty: 20 RF: 2 levothyroxine [Synthroid] 125 mcg tablet See Rx Instructions .ROUTE .COMPLEX Qty: 30 RF: 2 tramadol 50 mg tablet 50 mg PO TID PRN (Reason: back pain) 30 Days Qty: 90 RF: 1 norethindrone (contraceptive) [Keeley] 0.35 mg tablet 0.35 mg PO DAILY RF: 0 magnesium oxide 400 mg magnesium capsule 400 mg PO DAILY RF: 0 nystatin 100,000 unit/gram cream 1 applic topical BID 30 Days Qty: 30 RF: 2 albuterol sulfate [ProAir HFA] 90 mcg/actuation HFA aerosol inhaler 2 puff INHALATION Q6H PRN (Reason: shortness of breath or wheezing) 30 Days Qty: 8.5 RF: 5 mometasone 50 mcg/actuation spray,non-aerosol 2 spray intranasal DAILY PRN (Reason: nasal congestion) Qty: 17 RF: 5 bumetanide 2 mg tablet 2 mg PO DAILY PRN (Reason: edema) Qty: 30 RF: 3 spironolactone 50 mg tablet 50 mg PO DAILY Qty: 90 RF: 0 diltiazem HCl [Cardizem LA] 180 mg tablet extended release 24 hr 180 mg PO DAILY Qty: 90 RF: 3 Discharge Orders: Discharge ED (Routine); Ordered 06/15/21 Ordered By: Aly Alvarado Referrals: SHWETA Jameson, INDUSTRIAL RELATIONS COUNSELOR [Primary Care Provider] - Discharge Diet: Regular Discharge Activity: Increase activity as tolerated Patient Instructions: Hydrocortisone (Into the rectum) (Anusol-HC, Procto-Des,..., Hemorrhoids (DC), Sitz Bath (DC) Activity Restrictions/Additional Instructions: Follow-up with Dr. Soares at your next scheduled appointment this coming week for further evaluation. Take medications as prescribed. Take sitz bath couple times a day to try to help with symptoms. Return to the ER or your medical provider if condition worsens. Please read and understand discharge instructions. Thank you for choosing [facility] for your healthcare needs today. Please realize this is an emergency room and that we are providing you with a medical screening exam and this may not be complete and all inclusive of all the testing and or work up that you may need to determine your ailment or severity of your illness. It is very important that you follow up as instructed or that you return to the Emergency Department should you have concerns or if your condition changes or worsens in any way. Coding Level of Care Code ED Data Migration Consultant for Manohar Burgos Exam Comprehensive
[2021-06-14 23:32] VITALS: BP 149/91; RESP 16; O2SAT 98
[2021-06-14 23:35] LABS: Add Urine Microscopic? NO; Charge for UA Resulting for Rev
[2021-06-14 23:43] LABS: Basophils % 0.3 %; Eosinophils # 0.1 10^3/uL (0.0-0.8); Eosinophils % 0.7 %; Hematocrit 44.9 % (37.0-47.0); Hemoglobin 14.7 g/dL (11.5-15.3); Lymphocytes # 3.3 10^3/uL (0.8-4.8); Lymphocytes % 29.3 %; Mean Corpuscular HGB Conc 32.7 g/dL (30.0-36.0); Mean Corpuscular Hemoglobin 29.2 pg (28.0-34.0); Mean Corpuscular Volume 89.3 fl (81-99); Mean Platelet Volume 10.2 fL (7.4-10.4); Monocytes # 0.6 10^3/uL (0.2-0.9); Monocytes % 5.4 %; Neutrophils # 7.14 10^3/uL (1.8-7.7); Neutrophils % 64.1 %; Nucleated Red Blood Cells % 0 %; Platelet Count 283 10^3/cmm (130-400); Red Blood Count 5.03 10^6/uL (4.1-5.3); Red Cell Distribution Width 12.8 % (12.1-15.1); White Blood Count 11.1 10^3/uL (4.0-10.0)
[2021-06-14 23:44] LABS: Bilirubin Urine Neg (Negative); Blood Urine Neg (Negative); Glucose Urine UA Norm (Normal); Ketones Urine Negative (Negative); Leukocyte Esterase Urine Negative (Negative); Nitrate Urine Negative (Negative); Protein Urine Neg (Negative); Specific Gravity, Urine 1.025 (1.005-1.030); Urine Appearance Clear (CLEAR); Urine Color Yellow (Yellow); Urobilinogen Urine Norm (Negative); pH Urine 5 (5-7)
[2021-06-14 23:46] LABS: HCG, Serum Qual Negative (Negative)
[2021-06-14 23:56] LABS: Alanine Aminotransferase 24 U/L (0-33); Albumin Level 4.3 g/dL (3.5-5.2); Alkaline Phosphatase 82 IU/L (35-105); Anion Gap 17.7 (5-19); Aspartate Amino Transferase 14 U/L (0-32); Blood Urea Nitrogen 10 mg/dL (6-20); Carbon Dioxide 24 mmol/L (22-29); Chloride 101 mmol/L (98-107); Globulin 2.5 g/dL (1.3-4.6); Glucose 83 mg/dL (65-115); Lipase 18 U/L (13-60); Osmolality Calculated 286 mOsm/kg (285-295); Potassium 3.7 mmol/L (3.5-5.1); Sodium 139 mmol/L (136-145); Total Bilirubin 0.2 mg/dL (0.15-1.2); Total Protein 6.8 g/dL (6.6-8.7)
[2021-06-15 00:01] VITALS: BP 144/95
[2021-06-15 01:06] VITALS: BP 119/80; PULSE 81; RESP 16; O2SAT 98
== END 2021-06-15 01:06 | disposition home or self-care (01) ==
PROVIDERS: Emergency Provider Physician Assistant; PCP Nurse Practitioner Family
DX: K64.9 Unspecified hemorrhoids (principal); Z95.810 Presence of automatic (implantable) cardiac defibrillator
CPT/HCPCS: 80053; 81003; 83690; 84703; 85025; 99283

== ENCOUNTER 2021-07-09 09:25 | Outpatient (CLI) | payer OTHER, SELFPAY ==
[2021-07-09 10:25] LABS: 25 Hydroxy Vitamin D 52 ng/mL (30-100); Thyroid Stimulating Hormone 1.42 uIU/mL (0.27-4.20); Vitamin B12 595 pg/mL (232-1245)
[2021-07-09 10:56] LABS: Free T4 Free Thyroxine 1.31 ng/dL (0.82-1.77); T3 Free 3.8 PG/ML (2.0-4.4)
== END 2021-07-09 09:26 | disposition home or self-care (01) ==
LOC: LAB 09:31
PROVIDERS: PCP Physician Assistant; Visit Provider Nurse Practitioner Family
DX: E53.8 Deficiency of other specified B group vitamins (principal); E55.9 Vitamin D deficiency, unspecified; K75.81 Nonalcoholic steatohepatitis (NASH); E03.9 Hypothyroidism, unspecified
CPT/HCPCS: 36415; 82306; 82607; 84439; 84443; 84481

== ENCOUNTER 2022-10-02 18:51 | Emergency (ER) | payer OTHER, SELFPAY ==
[2022-10-02 18:58] VITALS: BP 164/82; PULSE 95; RESP 22; TEMP 36.7; O2SAT 99; BMI 45.8
--- NOTE | 2022-10-02 19:05 | ECG_ITS ---
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 Measurements Intervals [place] Rate: 81 P: 34 WV: 176 QRS: 22 QRSD: 94 T: 38 QT: 343 QTc: 398 Interpretive Statements SINUS RHYTHM LOW QRS VOLTAGE IN PRECORDIAL LEADS [QRS DEFLECTION < 1.0 mV IN CHEST LEADS] POSSIBLE ANTERIOR MYOCARDIAL INFARCTION , PROBABLY OLD [30 ms Q WAVE IN V3/V4, OR R < 0.2 mV IN V4] Compared to ECG 05/16/2018 18:09:15 Low QRS voltage now present Myocardial infarct finding now present T-wave abnormality no longer present Electronically Signed On 10-03-2022 7:12:37 CDT by Syed Valdez M.D. [email or web address]
--- NOTE | 2022-10-02 21:41 | W.ED.ARRPALP ---
HPI - Arrhythmia/Palpitations General: Chief Complaint: Arrhythmia/Palpitations Stated Complaint: n/v, dizzy, low bp Time Seen by Provider: 10/02/22 21:41 History of Present Illness: 27-year-old female comes in today with some increase in lightheadedness and low blood pressure. Patient also noticed that her pulse rate was up a little faster than normal. Patient has a history of SVT which she takes Cardizem for. Patient recently had the Cardizem decreased from 180 to 120 mg due to the dizziness. Patient also has chronic history of low back pain, hidradenitis suppurative, HADDAD, GERD, Josiah's thyroiditis, DJD, morbid obesity, PCOS. Associated symptoms: Reports nausea Review of Systems General: Reports: 10 or more systems reviewed and unremarkable except in HPI and below Const: Denies: fever(s) Card: Denies: chest pain Resp: Denies: dyspnea GI: Reports: nausea Skin/Breast: Denies: rash PFSH ED PFSH: Medical History Abnormal mammogram Axillary hidradenitis suppurativa Bilateral otitis media Breast inflammation Bronchitis Cervical spine pain Chronic idiopathic constipation Chronic low back pain Chronic pain disorder DDD (degenerative disc disease), lumbosacral Degenerative joint disease (DJD) of lumbar spine Environmental and seasonal allergies GERD (gastroesophageal reflux disease) Josiah's thyroiditis High risk medication use Hypothyroid Immunization counseling Inflammatory arthritis Inflammatory back pain Low serum vitamin B12 Migraine Mild intermittent asthma Nasal congestion HADDAD (nonalcoholic steatohepatitis) Otitis externa Otitis media Seronegative rheumatoid arthritis of both hands Shortness of breath Spinal stenosis, lumbar Subcutaneous nodule of breast SVT (supraventricular tachycardia) Tachycardia Thyroid nodule Upper abdominal pain Vitamin D deficiency Yeast dermatitis Surgical History History of back surgery History of implantable cardioverter-defibrillator (ICD) insertion Hx of colonoscopy with polypectomy Family History Mother Diabetes Josiah's disease Ankylosing spondylitis Fibromyalgia Hypertension PCOS (polycystic ovarian syndrome) CHF (congestive heart failure) Father Hypertension Sister PCOS (polycystic ovarian syndrome) Other Cancer Lung disease Denies family history of Rheumatoid arthritis Lupus Chronic kidney disease (CKD) Stroke Social History Smoking and tobacco status: never smoked Alcohol intake: never Physical Exam Const: COMMON NORMALS: alert HENMT: COMMON NORMALS: normocephalic HEAD & SCALP: normocephalic MOUTH: Normal oral and palatal mucosa present Neck/C-Spine: COMMON NORMALS: full ROM Resp: COMMON NORMALS: normal respiratory effort and clear to auscultation bilaterally AUSCULTATION: clear to auscultation bilaterally Cardio: COMMON NORMALS: regular rate and regular rhythm RATE: regular rate RHYTHM: regular rhythm : COMMON NORMALS: Yes no CVA tenderness BLADDER/KIDNEY EXAM: Yes no CVA tenderness Back/Pelvis: COMMON NORMALS: no CVA tenderness Extremity: COMMON NORMALS: no pedal edema Neuro: SENSORIUM/ORIENTATION: Yes alert Skin: COMMON NORMALS: turgor normal GENERAL SKIN EXAM: turgor normal Course Vital Signs: Vital signs: Vital Signs Temperature 98.1 F 10/02/22 18:58 Pulse Rate 81 10/02/22 23:00 Respiratory Rate 22 H 10/02/22 18:58 Blood Pressure 143/77 10/02/22 23:00 Pulse Oximetry 99 10/02/22 23:00 Oxygen Delivery Me thod 10/02/22 23:00 MDM - Arrhythmia/Palpitations Medical Decision Making 27-year-old female comes in today due to decreased blood pressure, increased heart rate, and dizziness. Patient has chronic issues with the symptoms but was concerned due to her blood pressure getting to 80 systolic, and her pulse rate jumping to 118. Patient has had a history of SVT. Patient appears nontoxic. No obvious edema is noted to the extremity. Patient is slightly pale. Differential diagnosis includes but not limited to anemia, dehydration, adverse drug effect, anxiety about health. Laboratory values were unremarkable. I believe the patient's dizziness may be related to her use of Cardizem. Throughout the ER visit we had no signs of tachycardia or hypotension. Orthostatic blood pressure evaluation was negative. Reviewed exam with patient with recommendations for treatment and follow-up. Patient reported understanding agreed to plan. Lab Data 10/02/22 21:49 10/02/22 21:49 Laboratory Results WBC 8.7 10^3/uL (4.0-10.0) 10/02/22 21:49 RBC 5.15 10^6/uL (4.1-5.3) 10/02/22 21:49 Hgb 15.1 g/dL (11.5-15.3) 10/02/22 21:49 Hct 46.1 % (37.0-47.0) 10/02/22 21:49 MCV 89.5 fl (81-99) 10/02/22 21:49 MCH 29.3 pg (28.0-34.0) 10/02/22 21:49 MCHC 32.8 g/dL (30.0-36.0) 10/02/22 21:49 RDW 12.6 % (12.1-15.1) 10/02/22 21:49 Plt Count 279 10^3/cmm (130-400) 10/02/22 21:49 MPV 9.2 fL (7.4-10.4) 10/02/22 21:49 Neut % (Auto) 63.7 % 10/02/22 21:49 Lymph % (Auto) 28.3 % 10/02/22 21:49 Hopkins % (Auto) 6.0 % 10/02/22 21:49 Eos % (Auto) 1.5 % 10/02/22 21:49 Baso % (Auto) 0.3 % 10/02/22 21:49 Neut # (Auto) 5.52 10^3/uL (1.8-7.7) 10/02/22 21:49 Lymph # (Auto) 2.5 10^3/uL (0.8-4.8) 10/02/22 21:49 Hopkins # (Auto) 0.5 10^3/uL (0.2-0.9) 10/02/22 21:49 Eos # (Auto) 0.1 10^3/uL (0.0-0.8) 10/02/22 21:49 Baso # (Auto) 0.0 10^3/uL (0.0-0.1) 10/02/22 21:49 Nucleated RBC % (auto) 0 % 10/02/22 21:49 Nucleated RBCs # 0.0 /100WBC 10/02/22 21:49 Sodium 140 mmol/L (136-145) 10/02/22 21:49 Potassium 4.1 mmol/L (3.5-5.1) 10/02/22 21:49 Chloride 106 mmol/L (98-107) 10/02/22 21:49 Carbon Dioxide 25 mmol/L (22-29) 10/02/22 21:49 Anion Gap 13.1 (5-19) 10/02/22 21:49 BUN 13 mg/dL (6-20) 10/02/22 21:49 Creatinine 0.9 mg/dL (0.5-0.9) 10/02/22 21:49 GFR Calculation 74.0 mL/min (90-130) L 10/02/22 21:49 Glucose 99 mg/dL (65-115) 10/02/22 21:49 Calculated Osmolality 290 mOsm/kg (285-295) 10/02/22 21:49 Calcium 8.6 mg/dL (8.5-10.5) 10/02/22 21:49 Total Bilirubin 0.2 mg/dL (0.15-1.2) 10/02/22 21:49 AST 13 U/L (0-32) 10/02/22 21:49 ALT 8 U/L (0-33) 10/02/22 21:49 Alkaline Phosphatase 64 U/L (35-105) 10/02/22 21:49 Troponin T Baseline 6 ng/L (0-10) 10/02/22 21:49 Total Protein 6.9 g/dL (6.6-8.7) 10/02/22 21:49 Albumin 4.0 g/dL (3.5-5.2) 10/02/22 21:49 Globulin 2.9 g/dL (1.3-4.6) 10/02/22 21:49 TSH 1.84 uIU/mL (0.27-4.20) 10/02/22 21:49 HCG, Qual Negative (Negative) 10/02/22 21:49 EKG Data EKG 1: EKG interpretation date: 10/02/22 EKG interpretation time: 22:00 Interpretation: EKG shows a sinus rhythm with a regular rate [address] elevation or ectopy is noted. No prior exam was available for comparison at this time. Discharge Plan Discharge Patient Disposition: Home Clinical Impression: Light headedness Condition: Stable Prescriptions: No Action Zyrtec 10 mg capsule 10 mg PO DAILY krill oil 500 mg capsule PO zinc 50 mg tablet 50 mg PO DAILY ascorbate calcium (vitamin C) 500 mg tablet 500 mg PO DAILY Aimovig Autoinjector 140 mg/mL auto-injector 140 mg SUBCUT ONCE 30 Days Qty: 30 5RF chlorhexidine gluconate [Hibiclens] 4 % liquid 1 applic topical Q5M clindamycin phosphate 1 % solution topical psyllium Packet 1 packet PO DAILY Rx Instructions: mix into at least 8 oz of water or juice before administering promethazine 12.5 mg tablet 12.5 mg PO Q6H PRN (Reason: sedation) 20 Days Qty: 20 0RF norethindrone (contraceptive) [Keeley] 0.35 mg tablet 0.35 mg PO DAILY magnesium oxide 400 mg magnesium capsule 400 mg PO DAILY albuterol sulfate [ProAir HFA] 90 mcg/actuation HFA aerosol inhaler 2 puff INHALATION Q6H PRN (Reason: shortness of breath or wheezing) 30 Days Qty: 8.5 5RF doxycycline monohydrate 100 mg capsule 100 mg PO BID 14 Days Qty: 28 0RF vitamin E (dl, acetate) 180 mg (400 unit) capsule 180 mg PO DAILY Tumeric Ana Complex 2,250 mg capsule PO DAILY cholecalciferol (vitamin D3) 125 mcg (5,000 unit) capsule 125 mcg PO DAILY calcium carbonate-vitamin D3 400-133.3 mg-unit tablet PO DAILY milk thistle 500 mg capsule 1,000 mg PO DAILY Rx Instructions: give with meal/snack Ultimate Faiza Probiotic 30 billion cell capsule,delayed release(DR/EC) PO DAILY dzagekqceo-kzducbjxnnoiw-ieco [Esgic] 50-325-40 mg capsule 1 - 2 cap PO Q6H PRN (Reason: headache) 30 Days Qty: 20 2RF tramadol 50 mg tablet 50 mg PO TID PRN (Reason: back pain) 30 Days Qty: 90 2RF bumetanide 1 mg tablet 1 mg PO DAILY PRN azelastine 137 mcg (0.1 %) aerosol,spray 2 spray intranasal BID Rx Instructions: administer into each nostril levothyroxine [Synthroid] 125 mcg tablet 125 mcg PO DAILY 90 Days Qty: 90 3RF norethindrone acetate 5 mg tablet 5 mg PO DAILY tranexamic acid 650 mg tablet 650 mg PO TID PRN diclofenac sodium 75 mg tablet,delayed release (DR/EC) 75 mg PO BID PRN (Reason: moderate to severe pain) Qty: 60 1RF cyanocobalamin (vitamin B-12) 1,000 mcg/mL solution See Rx Instructions IM .every 2 weeks 30 Days Qty: 2 5RF Rx Instructions: 1,000 mcg every two weeks for one month, then monthly IM .every 2 weeks; prednisone 10 mg tablet See Rx Instructions PO .COMPLEX PRN (Reason: joint pain) Qty: 30 1RF Rx Instructions: Take 1 tab daily for 5-7 days prn joint pain flare PO PRN; prednisone 5 mg tablet See Rx Instructions .ROUTE .COMPLEX Qty: 30 1RF Dose Instruction: TAKE ONE TABLET BY MOUTH DAILY NEEDED FOR JOINT PAIN FLARE Rx Instructions: TAKE ONE TABLET BY MOUTH DAILY NEEDED FOR JOINT PAIN FLARE diltiazem HCl 180 mg capsule,extended release 24 hr 180 mg PO DAILY Label Comments: 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 hydroxychloroquine 200 mg tablet See Rx Instructions .ROUTE .COMPLEX Qty: 60 1RF Dose Instruction: TAKE ONE TABLET BY MOUTH TWICE DAILY Rx Instructions: TAKE ONE TABLET BY MOUTH TWICE DAILY diclofenac sodium 1 % gel See Rx Instructions .ROUTE .COMPLEX Qty: 100 2RF Dose Instruction: apply TWO grams FOUR TIMES DAILY TO affected AREA NEEDED Rx Instructions: apply TWO grams FOUR TIMES DAILY TO affected AREA NEEDED mometasone 50 mcg/actuation spray,non-aerosol See Rx Instructions .ROUTE .COMPLEX Qty: 17 5RF Dose Instruction: INSTILL TWO SPRAYS INTO EACH NOSTRIL DAILY NEEDED FOR NASAL CONGESTION. Rx Instructions: INSTILL TWO SPRAYS INTO EACH NOSTRIL DAILY NEEDED FOR NASAL CONGESTION. Discharge Orders: Discharge ED (Routine); Ordered 10/02/22 Ordered By: Sudhakar Pugh Referrals: Carissa López PA [Primary Care Provider] - Discharge Diet: Usual diet Discharge Activity: Increase activity as tolerated Patient Instructions: Lightheadedness (ED) Activity Restrictions/Additional Instructions: Follow-up with primary care and carton liner for further evaluation and treatment. Return to ED for worsening symptoms such as increased shortness of breath, chest pain, fever greater than 100.4, or new concerns. Coding Level of Care Code ED Religious Education Coordinator for Manohar Burgos
--- NOTE | 2022-10-02 21:51 | ECG_ITS ---
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 Measurements Intervals [place] Rate: 83 P: 53 [place]: 183 QRS: 57 QRSD: 96 T: 49 QT: 348 QTc: 409 Interpretive Statements SINUS RHYTHM LOW QRS VOLTAGE IN PRECORDIAL LEADS [QRS DEFLECTION < 1.0 mV IN CHEST LEADS] Compared to ECG 10/02/2022 19:12:14 Myocardial infarct finding no longer present Electronically Signed On 10-03-2022 7:12:30 CDT by Syed Valdez M.D. [id number]
[2022-10-02 21:56] LABS: Basophils % 0.3 %; Eosinophils # 0.1 10^3/uL (0.0-0.8); Eosinophils % 1.5 %; Hematocrit 46.1 % (37.0-47.0); Hemoglobin 15.1 g/dL (11.5-15.3); Lymphocytes # 2.5 10^3/uL (0.8-4.8); Lymphocytes % 28.3 %; Mean Corpuscular HGB Conc 32.8 g/dL (30.0-36.0); Mean Corpuscular Hemoglobin 29.3 pg (28.0-34.0); Mean Corpuscular Volume 89.5 fl (81-99); Mean Platelet Volume 9.2 fL (7.4-10.4); Monocytes # 0.5 10^3/uL (0.2-0.9); Neutrophils # 5.52 10^3/uL (1.8-7.7); Neutrophils % 63.7 %; Nucleated Red Blood Cells % 0 %; Platelet Count 279 10^3/cmm (130-400); Red Blood Count 5.15 10^6/uL (4.1-5.3); Red Cell Distribution Width 12.6 % (12.1-15.1); White Blood Count 8.7 10^3/uL (4.0-10.0)
[2022-10-02 22:08] VITALS: BP 131/65; BP 146/93; BP 151/82; PULSE 81; PULSE 93
[2022-10-02 22:12] LABS: Alanine Aminotransferase 8 U/L (0-33); Alkaline Phosphatase 64 U/L (35-105); Anion Gap 13.1 (5-19); Aspartate Amino Transferase 13 U/L (0-32); Blood Urea Nitrogen 13 mg/dL (6-20); Calcium 8.6 mg/dL (8.5-10.5); Carbon Dioxide 25 mmol/L (22-29); Chloride 106 mmol/L (98-107); Globulin 2.9 g/dL (1.3-4.6); Glucose 99 mg/dL (65-115); Osmolality Calculated 290 mOsm/kg (285-295); Potassium 4.1 mmol/L (3.5-5.1); Sodium 140 mmol/L (136-145); Total Bilirubin 0.2 mg/dL (0.15-1.2); Total Protein 6.9 g/dL (6.6-8.7)
[2022-10-02 22:21] LABS: HCG, Serum Qual Negative (Negative)
[2022-10-02 22:26] LABS: Troponin(5th) Baseline 6 ng/L (0-10)
[2022-10-02 23:00] VITALS: BP 143/77; PULSE 81; O2SAT 99
[2022-10-02 23:02] LABS: Thyroid Stimulating Hormone 1.84 uIU/mL (0.27-4.20)
== END 2022-10-02 23:15 | disposition home or self-care (01) ==
PROVIDERS: Emergency Provider Nurse Practitioner Family; PCP Physician Assistant
DX: R42 Dizziness and giddiness (principal); Z95.810 Presence of automatic (implantable) cardiac defibrillator
CPT/HCPCS: 36415; 80053; 84443; 84484; 84703; 85025; 93005; 99284

== ENCOUNTER 2022-11-16 12:30 | Outpatient (CLI) | payer OTHER, SELFPAY | END 2022-11-16 12:31 | disposition home or self-care (01) | LOC: SLEEP 11-17 10:13 | PROVIDERS: PCP Physician Assistant; Visit Provider Physician Assistant | DX: G47.33 Obstructive sleep apnea (adult) (pediatric) (principal); G47.10 Hypersomnia, unspecified | CPT/HCPCS: G0399 ==

== ENCOUNTER 2025-01-08 08:06 | Outpatient (CLI) | payer OTHER, SELFPAY ==
--- NOTE | 2025-01-08 08:14 | XR_ITS ---
WS: [id number] Exam: XR foot LT min 3V* 82999 Date/Time of Exam: 01/08/2025 8:16 AM Reason For Exam: M79.672 - Pain in left foot Comparison 06/06/2020. No acute fracture. The joints are preserved. Soft tissues are unremarkable. XR/XR foot LT min 3V* [id number] IMPRESSION: 1. Negative LEFT foot.
== END 2025-01-08 08:07 | disposition home or self-care (01) ==
PROVIDERS: PCP Physician Assistant; Visit Provider Internal Medicine Rheumatology
DX: M79.672 Pain in left foot (principal)
CPT/HCPCS: 73630

== ENCOUNTER 2025-03-29 16:16 | Emergency (ER) | payer OTHER, SELFPAY ==
--- OUTSIDE RECORDS SUMMARY | 2024-10-06 03:30 | XMS_ITS ---
Author Organization [facility] Address [address] [place] [address] Care Team Providers Care Turkey Egg Gatherer Name Role Phone Carissa Villa Primary Care Provider Unavailabl Natanael Glover Unavailable [phone] REASON FOR VISIT epigastric abd pain, blood in stool, elevated fecal calprotectin Encounters Encounter Location Date Provider Diagnosis Formerly [facility] [address] [place] [address] 10/06/2024 Natanael Rodriguez Plan Of Treatment Next Appt Details Provider Name:Natanael mera, 08/22/2025 10:00:00 AM, [address] [place], [address], Progress Notes * PASCALEBrandenneDOB: (29 yo F)Acc No.[id number]:10/06/2024 History and Physical Patient: Moy twinciciBranden Provider: Talha Rodriguez MD :1995 A ge:29 Y S ex:Female Date:10/06/2024 Address:[facility] [id number] Pcp:NEFTALI Guerrero Subjective: * Chief Complaints: * E pigastric abd pain, blood in stool, elevated fecal calprotectin * Electronic signature of Kassi Rodriguez MD on 03/29/2025 at 04:53 PM CDT Sign off status: Pending * Provider: Talha Rodriguez MD Date: 0 10/06/2024 Generated for Laurita trevino/Tawanda/Cathie on: 0 03/29/2025 04:53 PM CDT
--- OUTSIDE RECORDS SUMMARY | 2024-10-20 03:00 | XMS_ITS ---
Author Organization [facility] Address [address] [place] [address] Care Team Providers Care Audiology Assistant Name Role Phone Carissa Villa Primary Care Provider Natanael Carter Unavailable [phone] Allergies Allergen (clinical drug ingredient) Drug/Non Drug Allergy documented on EMR Reaction Allergy Type Onset Date Status duloxetine Cymbalta Unknown Drug Allergy Active meperidine Demerol Unknown Drug Allergy Active sumatriptan Imitrex Unknown Drug Allergy Activ e nitrofurantoin Macrodantin Unknown Drug Allergy Active rizatriptan Maxalt Unknown Drug Allergy Activ e Omnicef Unknown Drug Allergy Active paroxetine Paxil Unknown Drug Allergy Active Phenol Unknown Drug Allergy Active predniSONE Unknown Drug Allergy Active fluoxetine PROzac Unknown Drug Allergy Active metaxalone Skelaxin Unknown Drug Allergy Active Adhesive Unknown Allergy Active amoxicillin Amoxicillin Unknown Drug Allergy Act nona hydroxyzine Hydroxyzine Unknown Drug Allergy Act nona leflunomide Leflunomide Unknown Drug Allergy Act nona midazolam Midazolam Unknown Drug Allergy Active niacin Niacin Unknown Drug Allergy Active Penicillin Unknown Drug Allergy Active propranolol Propranolol Unknown Drug Allergy Act nona sulfasalazine Sulfasalazine Unknown Drug Allergy Active REASON FOR VISIT epigastric abd pain, blood in stool, elevated fecal calprotectin Medications Medication SIG (Take, Route, Frequency, Duration) Notes Start Date End Date Status Norethindrone Acetate 5 MG Tablet 1 tablet Orally Once a day Active PriLOSEC 2.5 MG Packet 1 packet Orally daily Active Esgic 50-325-40 MG Tablet 1 tablet as ne eded Orally every 4 hrs Active Hydroxychloroquine Sulfate 200 MG Tablet as directed Orally Active Levalbuterol HCl 1.25 MG/3ML Nebulization Solution 3 mL as needed Inhalation every 8 hrs Active Aimovig 140 MG/ML Solution Auto-injector 140 mg Subcutaneous weekly Active Bumex 0.5 MG Tablet 2 tablet Orally Once a day Active ZyrTEC Allergy 10 MG Tablet 1 tablet Ora lly Once a day Active Cinnamon 500 MG Tablet 2 tablets Orally daily Active Cyanocobalamin 1000 MCG Tablet 1 tablet Orally Once a day Active Protonix 40 MG Tablet Delaye d Release 1 tablet 1/2 to 1 hour before morning meal Orally Once a day Active Ramelteon 8 MG Tablet 1 tablet at bedtim e as needed Orally Once a day Active Sertraline HCl 200 MG Capsule 1 capsule Orally Once a day Active Synthroid 125 MCG Tablet 1 tablet in the morning on an empty stomach Orally Once a day Active Turmeric Curcumin - Capsule 1 capsule Orally daily Active Probiotic 1-250 BILLION-MG Capsule 1 capsule Orally daily Activ e Promethazine HCl 25 MG Tablet 1 tablet a s needed Orally every 12 hrs Active Encounters Encounter Location Date Provider Diagnosis [facility] [address] [place] [address] 10/20/2024 Natanael Rodriguez Hematochezia K92.1 ; Epigastric abdominal pain R10.13 and Elevated fecal calprotectin R19.5 Assessments Encounter Date Diagnosis (ICD Code) Assessment Notes Treatment Notes Treatment Clinical Notes Section Notes 10/20/2024 Hematochezia (ICD-10 - K92.1) Proceed with diagnostic colonoscopy today. 10/20/2024 Epigastric abdominal pain (ICD-10 - R10.13) Proceed with diagnostic EGD. 10/20/2024 Elevated fecal calprotectin (ICD-10 - R19.5) Plan Of Treatment Treatment Notes Assessment Notes Hematochezia Proceed with diagnos tic colonoscopy today. Epigastric abdominal pain Proceed with d iagnostic EGD. Next Appt Details Provider Name:Natanael mera, 08/22/2025 10:00:00 AM, [address] [place], [address], History and Physical Notes * HPI (History of Present Illness) Category Sub-Category Detail Notes Category Not es Provider Note Ms. Ashraf is a 29-year-old female patient presenting today for diagnostic EGD and colonoscopy for evaluation of epigastric pain, nausea, vomiting, as well as history of recurrent bloody stools, weight loss. Risk factors include chronic NSAID use, daily diclofenac and 8+ tablets of ibuprofen on a daily basis. Fecal calprotectan of 5530. Examination Category Sub-Category Detail Notes Category Not es General Examination GENERAL APPEARANCE: Alert, c omfortable, in no acute distress HEART: Regular rate and rhy thm. LUNGS: Non-labored respirat ions. Clear bilaterally. Symmetrical. 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 Ashraf is a 29-year-old female patient presenting today for diagnostic EGD and colonoscopy for evaluation of epigastric pain, nausea, vomiting, as well as history of recurrent bloody stools, weight loss. Risk factors include chronic NSAID use, daily diclofenac and 8+ tablets of ibuprofen on a daily basis. Fecal calprotectan of 5530. * ROS: G eneral - Multi System: Constitutional D enies fever, chills, body aches. . C ardiovascular D enies c hest pain, palpitations or syncope. R espiratory D enies shortness of breath. G astrointestinal S ee HPI. . * Medical History: Chicken pox Pneumonia Arthritis Anemia Bladder infections Migraines Back trouble Hypothyroid Hemorrhoids Asthma Bronchitis Anxiety Colon polyps Depression Fatty liver Fibromyalgia GERD Hashimotos IBS Osteoporosis Sleep apnea Panic attacks OCD Spinal stenosis Degenerative disc disease * Surgical History: colon polyp removal 1998 bilateral lamenotomy and discectomy 2011 atypical cells removal 2017 colonoscopy 03-06-2011 colonoscopy 11-22-2017 colonoscopy 02/2023 colonoscopy-polyps 1998 thyroid bx right breast bx * Family History: F ather: alive 62 yrs, hypertension, depression. M other: , congestive heart failure, hypothyroid, diabetes, arthritis. S iblings: alive 33 yrs, depression. great maternal grandmother colon cancer onset 60, maternal uncle- living, colon cancer with colon resection. * Medications: T akingPromethazine HCl 25 MG Tablet 1 tablet as needed Orally every 12 hrs PriLOSEC 2.5 MG Packet 1 packet Orally daily Levalbuterol HCl 1.25 MG/3ML Nebulization Solution 3 mL as needed Inhalation every 8 hrs Bumex 0.5 MG Tablet 2 tablet Orally Once a day Esgic 50-325-40 MG Tablet 1 tablet as needed Orally every 4 hrs Ramelteon 8 MG Tablet 1 tablet at bedtime as needed Orally Once a day Sertraline HCl 200 MG Capsule 1 capsule Orally Once a day Cinnamon 500 MG Tablet 2 tablets Orally daily Protonix 40 MG Tablet Delayed Release 1 tablet 1/2 to 1 hour before morning meal Orally Once a day Turmeric Curcumin - Capsule 1 capsule Orally daily Probiotic 1-250 BILLION-MG Capsule 1 capsule Orally daily ZyrTEC Allergy 10 MG Tablet 1 tablet Orally Once a day Hydroxychloroquine Sulfate 200 MG Tablet as directed Orally Norethindrone Acetate 5 MG Tablet 1 tablet Orally Once a day Synthroid 125 MCG Tablet 1 tablet in the morning on an empty stomach Orally Once a day Cyanocobalamin 1000 MCG Tablet 1 tablet Orally Once a day Aimovig 140 MG/ML Solution Auto-injector 140 mg Subcutaneous weekly Taking Promethazine HCl 25 MG Tablet 1 tablet as needed Orally every 12 hrs Taking PriLOSEC 2.5 MG Packet 1 packet Orally daily Taking Levalbuterol HCl 1.25 MG/3ML Nebulization Solution 3 mL as needed Inhalation every 8 hrs Taking Bumex 0.5 MG Tablet 2 tablet Orally Once a day Taking Esgic 50-325-40 MG Tablet 1 tablet as needed Orally every 4 hrs Taking Ramelteon 8 MG Tablet 1 tablet at bedtime as needed Orally Once a day Taking Sertraline HCl 200 MG Capsule 1 capsule Orally Once a day Taking Cinnamon 500 MG Tablet 2 tablets Orally daily Taking Protonix 40 MG Tablet Delayed Release 1 tablet 1/2 to 1 hour before morning meal Orally Once a day Taking Turmeric Curcumin - Capsule 1 capsule Orally daily Taking Probiotic 1-250 BILLION-MG Capsule 1 capsule Orally daily Taking ZyrTEC Allergy 10 MG Tablet 1 tablet Orally Once a day Taking Hydroxychloroquine Sulfate 200 MG Tablet as directed Orally Taking Norethindrone Acetate 5 MG Tablet 1 tablet Orally Once a day Taking Synthroid 125 MCG Tablet 1 tablet in the morning on an empty stomach Orally Once a day Taking Cyanocobalamin 1000 MCG Tablet 1 tablet Orally Once a day Taking Aimovig 140 MG/ML Solution Auto-injector 140 mg Subcutaneous weekly * Allergies: H ydroxyzinepredniSONEAdhesiveOmnicefCymbaltaLeflunomidePhenolDemerolSkelaxinNiaci nPaxilPropranololMaxaltPenicillinAmoxicillinPROzacMidazolamSulfasalazineImitrexM acrodantin Objective: * Examination: G eneral Examination: GENERAL APPEARANCE: A lert, comfortable, in no acute distress. HEART: R egular rate and rhythm. LUNGS: N on-labored respirations. Clear bilaterally. Symmetrical. ABDOMEN: N ormal, Soft, Non-tender, positive bowel sounds.? Assessment: * Assessment: 1. H ematochezia - K92.1 (Primary) 2 . E pigastric abdominal pain - R10.13? 3. E levated fecal calprotectin - R19.5 Plan: * Treatment: 2. E pigastric abdominal pain Notes: Proceed with diagnostic EGD. Billing Information: * Procedure Codes: * Electronic signature of Abod carlo Rodriguez MD on 03/29/2025 at 04:53 PM CDT Sign off status: Pending * Provider: Talha Rodriguez MD Date: 0 10/20/2024 Generated for Laurita trevino/Tawanda/eTransmitting on: 0 03/29/2025 04:53 PM CDT
--- NOTE | 2025-03-29 16:25 | ECG_ITS ---
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
[2025-03-29 16:26] VITALS: BP 138/93; PULSE 102; RESP 16; TEMP 37.1; O2SAT 97
--- NOTE | 2025-03-29 16:51 | W.ED.CHESTPA ---
HPI - Chest Pain General: Chief Complaint: Chest Pain Stated Complaint: high hr / chest pains Time Seen by Provider: 03/29/25 16:35 History of Present Illness: 29-year-old female who presents to the emergency room with episodes of tachycardia and chest discomfort. She says this started when her PCP started to try to wean her from clonidine that she has been taking for anxiety. Currently she is not tachycardic and not having any chest pain. She said her heart rate got up to the 160s today. Says just before arrival here her PCP had contacted her and told her they would start weaning her off clonidine again and for her to start taking it again. Related Data Home Medications ?Medication ?Instructions ?Recorded ?Confirmed cetirizine 10 mg capsule (Zyrtec) 10 mg PO DAILY 08/08/20 09/25/24 norethindrone acetate 5 mg tablet 5 mg PO DAILY 11/03/21 09/25/24 acetaminophen 500 mg tablet 500 mg PO BID 08/09/23 09/25/24 pantoprazole 40 mg tablet,delayed 40 mg PO DAILY 09/25/24 09/25/24 release (Protonix) sertraline 100 mg tablet (Zoloft) 200 mg PO .HS 09/25/24 09/25/24 clonidine HCl 0.2 mg tablet 0.2 mg PO BID 01/15/25 01/15/25 trazodone 50 mg tablet 50 mg PO DAILY 01/15/25 01/15/25 melatonin 10 mg capsule 10 mg PO DAILY 01/16/25 mesalamine 1.2 gram tablet,delayed 4.8 g PO DAILY 01/16/25 release (Lialda) prednisone 5 mg tablet 5 mg PO .prn 01/16/25 Previous Rx's ?Medication ?Instructions ?Recorded erenumab-aooe 140 mg/mL 140 mg SUBCUT ONCE 30 days #30 mL 03/07/21 subcutaneous auto-injector (Aimovig Autoinjector) promethazine 12.5 mg tablet 12.5 mg PO Q6H PRN sedation 20 07/29/21 days #20 tabs gmsnpqswwb-ebzawodvdqfaa-ohpasybz 1 - 2 cap PO Q6H PRN headache 30 07/31/21 50 mg-325 mg-40 mg capsule (Esgic) days #20 caps levothyroxine 125 mcg tablet See Rx Instructions .Route 01/11/23 (Synthroid) .COMPLEX #90 tabs hydroxychloroquine 200 mg tablet See Rx Instructions .Route 01/09/25 .COMPLEX #180 tabs diclofenac sodium 1 % topical gel See Rx Instructions .Route 01/15/25 .COMPLEX #100 grams Allergies Allergy/AdvReac Type Severity Reaction Status Date / Time rizatriptan (From Maxalt) Allergy Severe throat Verified 09/25/24 15:20 swell metaxalone (From Skelaxin) Allergy Intermediate makes her Verified 09/25/24 15:20 hot and have headache niacin Allergy Intermediate ALGY-Rash Verified 09/25/24 15:20 fluoxetine (From Prozac) Allergy Unknown Unknown Verified 01/15/25 15:12 Penicillins Allergy Unknown rash Verified 09/25/24 15:20 adhesive Allergy rash Verified 09/25/24 15:20 cefdinir (From Omnicef) Allergy rash Verified 09/25/24 15:20 meperidine (From Demerol) Allergy rash Verified 09/25/24 15:20 midazolam (From Versed) Allergy rash Verified 09/25/24 15:20 nitrofurantoin (From Allergy rash Verified 09/25/24 15:20 Macrodantin) sumatriptan (From Imitrex) Allergy rash Verified 09/25/24 15:20 leflunomide AdvReac Severe diarrhea Verified 09/25/24 15:20 sulfasalazine AdvReac Severe N/V and Verified 09/25/24 15:20 HTN to ER adhesive tape AdvReac Intermediate Rash Verified 01/15/25 09:42 amoxicillin AdvReac Intermediate Rash Verified 01/15/25 09:42 hydroxyzine AdvReac Intermediate Neuro Verified 01/15/25 09:40 Milk Containing Products AdvReac Intermediate ADR-Gastrointestinal Verified 09/27/24 17:12 (Dairy) Upset NSAIDS (Non-Steroidal AdvReac Intermediate ADR-Gastrointestinal Verified 09/27/24 17:12 Anti-Inflamma Upset phenol AdvReac Intermediate Throat Verified 01/15/25 09:43 Swelling duloxetine (From Cymbalta) AdvReac Unknown Unknown Verified 01/15/25 15:12 menthol (From Chloraseptic AdvReac causes Verified 09/25/24 15:20 Cough and Throat) throat to itch paroxetine (From Paxil) AdvReac Blurry eyes Verified 09/25/24 15:20 propranolol AdvReac Blurry eyes Verified 09/25/24 15:20 Review of Systems Narrative: Constitutional symptoms: Negative except as documented in HPI. Skin symptoms: Negative except as documented in HPI. Eye symptoms: Negative except as documented in HPI. ENMT symptoms: Negative except as documented in HPI. Respiratory symptoms: Negative except as documented in HPI. Cardiovascular symptoms: Negative except as documented in HPI. Gastrointestinal symptoms: Negative except as documented in HPI. Genitourinary symptoms: Negative except as documented in HPI. Musculoskeletal symptoms: Negative except as documented in HPI. Neurologic symptoms: Negative except as documented in HPI. Psychiatric symptoms: Negative except as documented in HPI. Endocrine symptoms: Negative except as documented in HPI. PFSH ED PFSH: Medical History (Updated 03/29/25 @ 17:49 by Shaunna Louise MD) Ulcerative (chronic) enterocolitis Chronic low back pain Immunization counseling Thyroid nodule Seronegative rheumatoid arthritis of both hands Abnormal mammogram Axillary hidradenitis suppurativa Shortness of breath Yeast dermatitis HADDAD (nonalcoholic steatohepatitis) Bilateral otitis media Upper abdominal pain Vitamin D deficiency Bronchitis Chronic pain disorder Breast inflammation Josiah's thyroiditis High risk medication use Degenerative joint disease (DJD) of lumbar spine Inflammatory back pain Inflammatory arthritis SVT (supraventricular tachycardia) Low serum vitamin B12 Cervical spine pain Nasal congestion Otitis media Otitis externa Environmental and seasonal allergies Subcutaneous nodule of breast DDD (degenerative disc disease), lumbosacral Mild intermittent asthma GERD (gastroesophageal reflux disease) Migraine Spinal stenosis, lumbar Tachycardia Chronic idiopathic constipation Hypothyroid Surgical History History of implantable cardioverter-defibrillator (ICD) insertion History of back surgery Hx of colonoscopy with polypectomy Family History Mother Diabetes Josiah's disease Ankylosing spondylitis Fibromyalgia Hypertension PCOS (polycystic ovarian syndrome) Congestive heart failure (CHF) Father Hypertension Sister PCOS (polycystic ovarian syndrome) Other Cancer Lung disease Denies family history of Rheumatoid arthritis Lupus Chronic kidney disease (CKD) Stroke Social History Smoking and tobacco/nicotine status: never used tobacco/nicotine Alcohol intake: never Substance/Drug Use: never Physical Exam Narrative: EXAM NARRATIVE: General: Alert, no acute distress. Skin: Warm, dry. Head: Normocephalic, atraumatic. Neck: Supple, trachea midline. Eye: Extraocular movements are intact. Ears, nose, mouth and throat: mucosa moist. Cardiovascular: Regular, Normal peripheral perfusion. Respiratory: Lungs are clear to auscultation, respirations are non-labored, breath sounds are equal, Symmetrical chest wall expansion. Gastrointestinal: Soft, Nontender, Non distended Musculoskeletal: Normal ROM, no deformity. Neurological: Alert and oriented, No focal neurological deficit observed. Psychiatric: Cooperative, appropriate mood & affect. Course Vital Signs: Vital signs: Vital Signs Temperature 98.8 F 03/29/25 16:26 Pulse Rate 108 H 03/29/25 17:23 Respiratory Rate 16 03/29/25 16:26 Blood Pressure 156/100 03/29/25 17:23 Pulse Oximetry 100 03/29/25 17:23 Oxygen Delivery Me thod Room Air 03/29/25 16:26 MDM - Chest Pain Medical Decision Making Differential diagnosis for patient with chest pain includes but is not limited to and based on the above HPI, review of systems and physical exam: Pneumonia. unstable angina. angina. Acute coronary syndrome / [place]. Pulmonary embolism. Costochondritis / musculoskeletal. Pleurisy. Pericarditis. Esophageal spasm. Pancreatis. Cholecystitis. Orders placed to evaluate differential diagnosis based on the above differential, HPI and physical exam EKG: Time 1625. Rate 106. Sinus tachycardia, No ST-T changes, no ectopy, normal ID & QRS intervals, This was reviewed and interpreted by myself the ER physician at 1630 Lab Review: Laboratory results were reviewed and interpreted by myself the emergency room physician. No leukocytosis. No anemia. No renal failure. Cardiac markers are negative. I reviewed the patient's medical record. Reexamination: Patient remained stable. No increased work of breathing. No altered mental status. No focal motor deficits. Assessment and plan: Noncardiac chest pain - Discharged home - Discussed plan with patient. Answered any questions. - Evaluation and treatment of this problem were appropriate in the emergency setting. Lab Data 03/29/25 16:46 03/29/25 16:46 Laboratory Results WBC 7.86 10^3/uL (3.29-11.43) 03/29/25 16:46 RBC 5.15 10^6/uL (3.85-5.65) 03/29/25 16:46 Hgb 14.80 g/dL (11.27-16.99) 03/29/25 16:46 Hct 44.6 % (36-47) 03/29/25 16:46 MCV 86.6 fl (85-98) 03/29/25 16:46 MCH 28.7 pg (27-33) 03/29/25 16:46 MCHC 33.2 g/dL (30-55) 03/29/25 16:46 RDW 13.4 % (12.1-15.1) 03/29/25 16:46 Plt Count 325 10^3/cmm (157-399) 03/29/25 16:46 MPV 8.6 fL (7.4-10.4) 03/29/25 16:46 Neut % (Auto) 61.8 % 03/29/25 16:46 Lymph % (Auto) 29.3 % 03/29/25 16:46 [place] % (Auto) 7.0 % 03/29/25 16:46 Eos % (Auto) 1.1 % 03/29/25 16:46 Baso % (Auto) 0.5 % 03/29/25 16:46 Neut # (Auto) 4.86 10^3/uL (1.8-7.7) 03/29/25 16:46 Lymph # (Auto) 2.3 10^3/uL (0.8-4.8) 03/29/25 16:46 [place] # (Auto) 0.6 10^3/uL (0.2-0.9) 03/29/25 16:46 Eos # (Auto) 0.1 10^3/uL (0.0-0.8) 03/29/25 16:46 Baso # (Auto) 0.0 10^3/uL (0.0-0.1) 03/29/25 16:46 Nucleated RBC % (auto) 0 % 03/29/25 16:46 Nucleated RBCs # 0.0 /100WBC 03/29/25 16:46 Sodium 140 mmol/L (136-145) 03/29/25 16:46 Potassium 3.9 mmol/L (3.5-5.1) 03/29/25 16:46 Chloride 105 mmol/L (98-107) 03/29/25 16:46 Carbon Dioxide 24 mmol/L (22-29) 03/29/25 16:46 Anion Gap 14.9 (5-19) 03/29/25 16:46 BUN 11 mg/dL (6-20) 03/29/25 16:46 Creatinine 0.7 mg/dL (0.5-0.9) 03/29/25 16:46 GFR Calculation 97.6 mL/min (90-130) 03/29/25 16:46 Glucose 77 mg/dL (65-115) 03/29/25 16:46 Calculated Osmolality 288 mOsm/kg (285-295) 03/29/25 16:46 Calcium 8.8 mg/dL (8.5-10.5) 03/29/25 16:46 Total Bilirubin 0.3 mg/dL (0.15-1.2) 03/29/25 16:46 AST 18 U/L (0-32) 03/29/25 16:46 ALT 21 U/L (0-33) 03/29/25 16:46 Alkaline Phosphatase 76 U/L (35-105) 03/29/25 16:46 Troponin T Baseline < 6 ng/L (0-10) 03/29/25 16:46 Total Protein 6.7 g/dL (6.6-8.7) 03/29/25 16:46 Albumin 4.2 g/dL (3.5-5.2) 03/29/25 16:46 Globulin 2.5 g/dL (1.3-4.6) 03/29/25 16:46 All radiology interpretation(s) finalized by discharge Discharge Plan Discharge Patient Disposition: Home Clinical Impression: Non-cardiac chest pain, Tachycardia Condition: Stable Prescriptions: No Action Zyrtec 10 mg capsule 10 mg PO DAILY Aimovig Autoinjector 140 mg/mL auto-injector 140 mg SUBCUT ONCE 30 Days Qty: 30 5RF promethazine 12.5 mg tablet 12.5 mg PO Q6H PRN (Reason: sedation) 20 Days Qty: 20 0RF rgewvraegj-cqmremkhtbnwu-hivs [Esgic] 50-325-40 mg capsule 1 - 2 cap PO Q6H PRN (Reason: headache) 30 Days Qty: 20 2RF acetaminophen 500 mg tablet 500 mg PO BID norethindrone acetate 5 mg tablet 5 mg PO DAILY sertraline [Zoloft] 100 mg tablet 200 mg PO .HS pantoprazole [Protonix] 40 mg tablet,delayed release (DR/EC) 40 mg PO DAILY trazodone 50 mg tablet 50 mg PO DAILY clonidine HCl 0.2 mg tablet 0.2 mg PO BID diclofenac sodium 1 % gel See Rx Instructions .ROUTE .COMPLEX Qty: 100 2RF Dose Instruction: apply TWO grams FOUR TIMES DAILY TO affected AREA NEEDED Rx Instructions: apply TWO grams FOUR TIMES DAILY TO affected AREA NEEDED levothyroxine [Synthroid] 125 mcg tablet See Rx Instructions .ROUTE .COMPLEX Qty: 90 3RF Dose Instruction: TAKE ONE TABLET BY MOUTH DAILY Rx Instructions: TAKE ONE TABLET BY MOUTH DAILY hydroxychloroquine 200 mg tablet See Rx Instructions .ROUTE .COMPLEX Qty: 180 1RF Dose Instruction: take 2 tablets BY MOUTH DAILY Rx Instructions: take 2 tablets BY MOUTH DAILY melatonin 10 mg capsule 10 mg PO DAILY prednisone 5 mg tablet 5 mg PO .prn Rx Instructions: Take 1-2 per day up to 7 days for flare. mesalamine [Lialda] 1.2 gram tablet,delayed release (DR/EC) 4.8 g PO DAILY Discharge Orders: Discharge ED (Routine); Ordered 03/29/25 Ordered By: Shaunna Louise Referrals: Carissa López PA [Primary Care Provider, Physicians Content Production Specialist] Discharge Diet: Usual diet Discharge Activity: Increase activity as tolerated Patient Instructions: Opioid Safety, Pain Management, Patient Portal & Basilio Instructions Activity Restrictions/Additional Instructions: Medication changes as instructed by your primary provider. Thank you for choosing [facility] for your healthcare needs today. You have been screened and evaluated and felt safe for discharge. Health conditions do change or evolve sometimes and as such it is important that you follow up with your Primary Doctor to be re checked, 3-5 days is a general good time frame for follow up. You are always welcome to return to the ED for re assessment if your symptoms are worsening or you have new concerns Print Language: Ukrainian Coding Level of Care Code ED Termite Exterminator Helper for Manohar Burgos
[2025-03-29 16:53] LABS: Hematocrit 44.6 % (36-47); Hemoglobin 14.80 g/dL (11.27-16.99); Mean Corpuscular HGB Conc 33.2 g/dL (30-55); Mean Corpuscular Hemoglobin 28.7 pg (27-33); Mean Corpuscular Volume 86.6 fl (85-98); Nucleated Red Blood Cells % 0 %; Platelet Count 325 10^3/cmm (157-399); Red Blood Count 5.15 10^6/uL (3.85-5.65); White Blood Count 7.86 10^3/uL (3.29-11.43)
--- OUTSIDE RECORDS SUMMARY | 2025-03-29 16:53 | XMS_ITS | Encounter Summary ---
Author Organization [facility] Address [address] [place] [address] Care Team Providers Care Scraper Hand Name Role Phone Jean-Claude Jameson ANNETTE Primary Care Provider [phone] Encounter Details Date Type Department Care Team (Late st Contact Info) Description 11/05/2015 Nurse Triage Report [id number] ABSTRACTION Zoya Mccabe, RN Social History Tobacco Use Types Packs/Day Years Used Date Smoking Tobacco: Never Smokeless Tobacco: Never Alcohol Use Standard Drinks/Week Comments No 0 (1 standard drink = 0.6 oz pur e alcohol) Comments No Sex and Gender Information Value Date Recorded Sex Assigned at Not on file 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 Report Feedback to Dr. Silveira <<<<<<<< TRIAGE NOTE >>>>>>>> <<<<<<<< TRIAGE/OUTCOME >>>>>>>> Guideline Title: Medication Questions - Adult Recommended Disposition: Speak with Provider or Pharmacist within 24 hours Original Inclination: Call Provider/See in 24 Intended Action: Call or See Provider within 24 hrs Physician Contacted: No Has questions about prescribed and/or nonprescribed medications not covered by available resources ? YES documented in this encounter Plan of Treatment Not on file documented as of this encounter Visit Diagnoses Not on filedocumented in this encounter Care Teams Scraper Hand Relationship Specialty Start Date End Date Jean-Claude Jameson, ORNAMENTAL RAIL INSTALLER [address] [place] [address] [phone] PCP - General NURSE PRACTITIONER 09/06/18 documented as of this encounter
--- OUTSIDE RECORDS SUMMARY | 2025-03-29 16:53 | XMS_ITS | Clinical Summary ---
Author Organization [facility] Address [address] Irvinn: Epic Prelude ADT ASHISH ANNE [address] Care Team Providers Care Criminal Judge Name Role Phone Jean-Claude Jameson APRN Primary Care Provider [phone] Allergies Active Allergy Reactions Criticality Noted Date Comments Amoxicillin Rash Low 12/04/2013 Cefdinir Rash Low 12/04/2013 Fluoxetine Other (See Comments) High 09/24/2015 Patient felt confused and lightheaded. Couldn't function. Meperidine Unknown 04/21/2012 Midazolam Rash Low 05/12/2012 Niacin Hives High 09/24/2015 Nitrofurantoin Macrocrystalline Swelling Low 04/21/2012 Paroxetine Hcl Hives High 09/24/2015 Phenol Other (See Comments) 04/12/2017 She used it and felt like she couldn't breathe. [place] like throat swelled. Rizatriptan Swelling Low 10/05/2016 Sumatriptan Succinate Rash Low 04/21/2012 Medications raNITIdine (ZANTAC) 150 mg tablet Take 150 mg by mouth 2 times daily. 11/08/2018 Active diltiaZEM (CARDIZEM LA) 180 mg Extended Release 24 hour tabletIndication s:Tachycardia,Fa kimberly history of thyroid disease Take 180 mg by mouth daily. 09/02/2018 Active digoxin (LANOXIN) 250 mcg/5 mL SolutionIndicati ons:Tachycardia, Family history of thyroid disease Take 125 mcg by mouth daily. 09/02/2018 Active metaxalone (SKELAXIN) 800 mg tablet Take 1 Tablet (800 mg) by mouth daily. 30 Tablet 3 02/04/2017 Active norethindrone Ac-Eth estradiol (Junel 1.530, 21,) 1.5-30 mg-mcg tabletIndication s:Menstrual migraine without status migrainosus, not intractable,Ml rrhagia with irregular cycle TAKE 1 TABLET BY MOUTH ONCE A DAY 21 Tablet PRN 09/06/2017 Active ondansetron (ZOFRAN) 4 mg Tablet Take 1 Tablet (4 mg) by mouth every 6 hours as needed for Nausea/Emes is. 10 Tablet 2 04/12/2017 Active montelukast (SINGULAIR) 10 mg tablet Take 1 Tablet (10 mg) by mouth daily. 30 Tablet 11 07/06/2017 Active traMADoL (ULTRAM) 50 mg tablet TAKE ONE TABLET BY MOUTH FOUR TIMES DAILY NEEDED. 60 Tablet 0 07/06/2017 Active spironolactone (ALDACTONE) 50 mg tablet Take 1 Tablet (50 mg) by mouth 2 times daily. 60 Tablet PRN 06/15/2016 Active Active Problems Problem Noted Date Diagnosed Date Tachycardia 09/02/2018 Family history of thyroid disease 09/02/2018 Fibromyalgia syndrome 11/25/2015 Morbid obesity with BMI of 40.0-44.9, adult 09/03 Breast cyst 09/24/2015 Menstrual migraine without s tatus migrainosus, not intractable 09/24/2015 DDD (degenerative disc disease), lumbar 05/12/20 12 Overview (10/31/2020): L3-4, 4-5, 5-1 Chronic midline low back pain with sciatica 04/04 Resolved Problems Problem Noted Date Diagnosed Date Resolved Date Herniated lumbar intervertebral disc 06/21/2012 11/20/2014 Herniated lumbar intervertebral disc 05/12/2012 10/26/2014 Overview (10/30/2020): L4-5 > L5-S1 > L3-4 Stenosis, spinal, lumbar 05/12/2012 Overview (10/30/2020): Severe central and bilateral lateral recess L4-5 and L5-S1 Thoracic or lumbosacral neur itis or radiculitis 05/12/2012 11/20/2014 Overview (10/30/2020): Bilateral lower extremities Ruptured disk 04/21/2012 05/12/2012 Family History Medical History Relation Name Comments Hypertension Father Hypertension Maternal Grandmother Healthy Mother Cancer Paternal Grandmother Hypertension Paternal Grandmother Relation Name Status Comments Father Alive Maternal Grandmother Alive Mother Alive Paternal Grandmother Alive Social History Tobacco Use Types Packs/Day Years Used Date Smoking Tobacco: Never Smokeless Tobacco: Never Alcohol Use Standard Drinks/Week Comments No 0 (1 standard drink = 0.6 oz pur e alcohol) Comments Unknown Sex and Gender Information Value Date Recorded Sex Assigned at Not on file 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 Gender Identity Not on file Sexual Orientation Not on file Last Filed Vital Signs Vital Sign Reading Time Taken Comments Blood Pressure 122/78 11/16/2018 3:22 PM CDT Pulse 102 11/16/2018 3:22 PM CDT Temperature 37 C (98.6 F) 11/08/2018 2:46 PM CDT Respiratory Rate 16 11/08/2018 3:30 PM CDT Oxygen Saturation - - Inhaled Oxygen Concentration - - Weight 139.7 kg (308 lb) 11/16/2018 3:22 PM CDT Height 175.3 cm (5' 9 ) 11/16/2018 3:22 PM CDT Body Mass Index 45.48 11/16/2018 3:22 PM CDT Plan of Treatment Health Maintenance Due Date Last Done Comments DTAP/TDAP/TD VACCINES (1 - Tdap) 2012 HEPATITIS B VACCINES (1 of 3 - 19+ 3-dose series) 05/06 HPV VACCINES (1 - 3-dose SCDM series) 2020 HPV/Cotest (21-29) 09/23/2020 09/24/2015 CERVICAL CANCER SCREENING 2023 HPV/Cotest (30-65) 2023 09/24/2015 PAP SMEAR 2023 09/24/2015 INFLUENZA VACCINE (#1) 2025 Procedures Procedure Name Priority Date/Time Associated Diagnosis Comments CERV/VAG CYTOPATH, THIN PREP W/RFLX HPV Routine 09/24/2015 10:00 AM CDT from Last 3 Months or Most Recently Relevant to Health Maintenance Results * CERV/VAG CYTOPATH, THIN PREP W/RFLX HPV (09/24/2015 10:00 AM CDT) CASE REPORT Gynecologic Cytology Report Case: [id number] Authorizing Provider: Val Hernandez DO Collected: 09/24/2015 1000 Ordering Location: [facility] Received: 09/27/2015 1125 [address] Redfield First Screen: Janey Vines Rescreen: Lyn Luo Specimen: LB PAP TP W/RFLX HPV PROT, Endocervical 10/03/2015 10:08 AM CDT [facility] [employer] [facility] Glassware Finisher Specimen Adequacy Satisfactory for evaluation, endocervical/mahoney sformation zone component present 10/03/2015 10:08 AM CDT [facility] [employer] [facility] Glassware Finisher General Categorization Negative For Intraepithelial Lesion Or Malignancy 10/03/2015 10:08 AM CDT [facility] Glassware Finisher Interpretation Negative For Intraepithelial Lesion Or Malignancy 10/03/2015 10:08 AM CDT [facility] [employer] [facility] Glassware Finisher Previous Pap Date 10/03/2015 10:08 AM CDT [facility] GynLMP 09/09/15 10/03/2015 10:08 AM CDT [facility] [employer] [facility] Glassware Finisher Educational Note 10/03/2015 10:08 AM CDT [facility] [employer] [facility] Endocervical (Endocervical) 09/24/2015 10:00 AM CDT 09/27/2015 11:25 AM CDT us Val Hernandez DO PATHOLOGY/CYTOLOGY ORDERABLES Fi nal Result [facility] [employer] [facility] CLIA# [id number] [place] [address] [facility] [employer] [facility] CLIA # [id number] [address] [facility] [place] [address] from Last 3 Months or Most Recently Relevant to Health Maintenance Care Teams Criminal Judge Relationship Specialty Start Date End Date Jean-Claude Jameson, RETIREMENT ASSISTANT [facility] [address] PCP - General NURSE PRACTITIONER 09/06/18
--- OUTSIDE RECORDS SUMMARY | 2025-03-29 16:53 | XMS_ITS | Patient Health Record ---
Author Organization [facility] Address [address] [place] [address] Care Team Providers Care Fig Caprifier Name Role Phone Carissa Villa Primary Care Provider Natanael Carter Unavailable [phone] Allergies Allergen (clinical drug ingredient) Drug/Non Drug [...] Allergy Active Phenol Unknown Drug Allergy Active fluoxetine PROzac Unknown Drug Allergy Active metaxalone Skelaxin Unknown Drug Allergy Active Adhesive Unknown Allergy Active amoxicillin Amoxicillin Unknown Drug Allergy Act nona hydroxyzine Hydroxyzine Unknown Drug Allergy Act nona leflunomide Leflunomide Unknown Drug Allergy Act nona midazolam Midazolam Unknown Drug Allergy Active niacin Niacin Unknown Drug Allergy Active Non-steroidal anti-inflammatory agent (FN) NSAIDs Unknown Drug Allergy Active Penicillin Unknown Drug Allergy Active propranolol Propranolol Unknown Drug Allergy Act nona sulfasalazine Sulfasalazine Unknown Drug Allergy Active Results Component Value Reference Range Notes POCT-HCG NC--No CPT Reviewed date:10/24/2024 11:23:10 AM Interpretation: Performing Lab: Notes/Report: POCT- HCG NC Negative Control HCG Valid Prometheus--NO CPT Reviewed date:11/01/2024 02:39:17 PM Interpretation: Performing Lab: Notes/Report: Prometheus Sent to Ref Lab Reason For Referral No Information Medications Medication SIG (Take, Route, Frequency, Duration) Notes Start Date End Date Status Bumex 0.5 MG Tablet 2 tablet Orally Once a day Not-Taking Sertraline HCl 200 MG Capsule 1 capsule Orally Once a day zoloft Active Ramelteon 8 MG Tablet 1 tablet at bedtim e as needed Orally Once a day Not-Taking Levalbuterol HCl 1.25 MG/3ML Nebulization Solution 3 mL as needed Inhalation every 8 hrs Not-Taking Protonix 40 MG Tablet Delayed Release 1 tablet 1/2 to 1 hour before morning meal Orally Once a day Active ZyrTEC Allergy 10 MG Tablet 1 tablet Orally Once a day Active Cyanocobalamin 1000 MCG Tablet 1 tablet Orally Once a day Not-Taking Synthroid 125 MCG Tablet 1 tablet in the morning on an empty stomach Orally Once a day Active Cinnamon 500 MG Tablet 2 tablets Orally daily Not-Taking Promethazine HCl 12.5 MG Tablet 1 tablet as needed Orally every 12 hrs Active cloNIDine 0.1 MG/24HR Patch Weekly 1 patch to skin Transdermal Not-Taking Esgic 50-325-40 MG Tablet 1 tablet as ne eded Orally every 4 hrs Active Xopenex HFA 45 MCG/ACT Aerosol 1 puff as needed Inhalation every 6 hrs Not-Taking Voltaren 1 % Gel as directed Externally as needed Not-Taking Dicyclomine HCl 20 MG Tablet 2 tablets Orally as needed Not-Taking Ctjgotzyqm-Qkuvgvs-Vmplwtf e 50-325-40 MG Capsule 1 capsule as needed Orally every 4 hrs Not-Taking Tylenol Extra Strength 500 MG Tablet 2 tablet as needed Orally every 6 hrs Active cloNIDine HCl 0.2 MG Tablet 1 tablet Orally twice a day Active predniSONE 5 MG Tablet 1 tablet with amrit d or milk Orally Once a day Active traZODone HCl 50 MG Tablet 1 tablet at b edtime as needed Orally Once a day Active Mesalamine 1.2 GM Tablet Delayed Release 4 tablets with a meal Orally Once a day; Duration: 90 days 11/01/2024 10/27/2025 Active Norethindrone Acetate 5 MG Tablet 1 tablet Orally Once a day Active Turmeric Curcumin - Capsule 1 capsule Orally daily Not-Taking Hydroxychloroquine Sulfate 400 MG Tablet 1 tablet Orally daily Active Probiotic 1-250 BILLION-MG Capsule 1 capsule Orally daily Not-Taking Aimovig 140 MG/ML Solution Auto-injector 140 mg Subcutaneous weekly Active PriLOSEC 2.5 MG Packet 1 packet Orally daily Not-Taking Social History Tobacco Use: Social History Observation Description Date Details (start date - stop date) Never Smoker NA - NA Social History Drug/Alcohol: Social Info Question Answer Notes AUDIT-C (Standard) Did you have a drink containing alcohol in the past year? No Points 0 Interpretation Negative Tobacco Use: Social Info Question Answer Notes Tobacco Control (Standard) Tobacco use: Nonsmoker Additional Details Category Social Info Options Details Drugs/Alcohol: Do you smoke marijuana? De nies Problems Problem Type SNOMED Code ICD Code Onset Dates Problem Status W/U Status Risk Notes Problem Anxiety (58572534) Anxiety (F41.9) Active confirmed Problem Crohn's disease of large bowel (4547952) Crohn's disease of colon without complication (K50.10) Active confirmed Problem Hypothyroidism (52533854) Hypothyroidism (acquired) (E03.9) Active confirmed Problem Migraine (82510834) Migraine (G43.909) Active confirmed Problem Ulcerative colitis (32685031) Ulcerative colitis (K51.90) Active confirmed Problem Chronic depression (631365876) Chronic depression (F32.9) Active confirmed Problem Obsessive-compuls nona disorder (464197619) OCD (obsessive compulsive disorder) (F42.9) Active confirmed Problem Blood in stool (266117093) Blood in stool (K92.1) Active confirmed Problem Epigastric pain (74336507) Epigastric abdominal pain (R10.13) Active confirmed Problem Rheumatoid arthritis (17997979) Rheumatoid arthritis (M06.9) Active confirmed Problem Morbid obesity (222216192) Morbid obesity (E66.01) Active confirmed Problem Atrophic gastritis (92721356) Mild chronic gastritis (K29.50) Active confirmed Problem Abnormal feces (617657891) Elevated fecal calprotectin (R19.5) Active confirmed Vital Signs Heart Rate 61 /min 02/14/2025 Temperature 98.0 degrees Fahrenheit 02/14/2025 Respiratory Rate 20 /min 02/14/2025 Oximetry 98 % 02/14/2025 Height-cm 175.26 cm 02/14/2025 Blood pressure diastolic 68 mm Hg 02/14/2025 Weight-kg 147.78 kg 02/14/2025 Height 69 in 02/14/2025 Blood pressure systolic 120 mm Hg 02/14/2025 Weight 325.8 lbs 02/14/2025 BMI 48.11 kg/m2 02/14/2025 Encounters Encounter Location Date Provider Diagnosis Formerly [facility] [address] [place] [address] 10/20/2024 Abodunrin Badejo Hematochezia K92.1 ; Epigastric abdominal pain R10.13 and Elevated fecal calprotectin R19.5 Formerly [facility] [address] [place] [address] 09/11/2024 Abodunrin Badejo Epigastric abdominal pain R10.13 ; Blood in stool K92.1 ; Elevated fecal calprotectin R19.5 ; Anxiety F41.9 ; OCD (obsessive compulsive disorder) F42.9 ; Chronic depression F32.9 ; Hypothyroidism (acquired) E03.9 ; Migraine G43.909 and Morbid obesity E66.01 Formerly [facility] [address] [place] [address] 11/01/2024 Abodunrin Badejo Ulcerative colitis K51.90 ; Anxiety F41.9 ; OCD (obsessive compulsive disorder) F42.9 ; Hypothyroidism (acquired) E03.9 ; Chronic depression F32.9 and Morbid obesity E66.01 Formerly [facility] [address] [place] [address] 02/14/2025 Abodunrin Badejo Ulcerative colitis K51.90 ; OCD (obsessive compulsive disorder) F42.9 ; Chronic depression F32.9 ; Rheumatoid arthritis M06.9 ; Hypothyroidism (acquired) E03.9 ; Migraine G43.909 and Morbid obesity E66.01 [facility] [address] [place] [address] 09/11/2024 Abodunrin [facility] [address] [place] [address] 10/26/2024 Aboduin [facility] [address] [place] [address] 11/02/2024 Abodunrin [facility] [address] [place] [address] 11/13/2024 [facility] [address] [place] [address] 11/20/2024 [facility] [address] [place] [address] 01/22/2025 [facility] [address] [place] [address] 02/16/2025 [facility] [address] [place] [address] 10/05/2024 [facility] [address] [place] [address] 03/20/2025 [facility] [address] [place] [address] 03/21/2025 [facility] Assessments Encounter Date Diagnosis (ICD Code) Assessment Notes Treatment Notes Treatment Clinical Notes Section Notes 09/11/2024 Blood in stool (ICD-10 - K92.1) 09/11/2024 Epigastric abdominal pain (ICD-10 - R10.13) 10/20/2024 Hematochezia (ICD-10 - K92.1) Proceed with diagnostic colonoscopy today. 10/20/2024 Epigastric abdominal pain (ICD-10 - R10.13) Proceed with diagnostic EGD. 11/01/2024 Anxiety (ICD-10 - F41.9) 11/01/2024 Ulcerative colitis (ICD-10 - K51.90) 02/14/2025 Ulcerative colitis (ICD-10 - K51.90) 02/14/2025 OCD (obsessive compulsive disorder) (ICD-10 - F42.9) 02/14/2025 Chronic depression (ICD-10 - F32.9) 09/11/2024 Elevated fecal calprotectin (ICD-10 - R19.5) 11/01/2024 OCD (obsessive compulsive disorder) (ICD-10 - F42.9) 10/20/2024 Elevated fecal calprotectin (ICD-10 - R19.5) 09/11/2024 Anxiety (ICD-10 - F41.9) 11/01/2024 Hypothyroidism (acquired) (ICD-10 - E03.9) 02/14/2025 Rheumatoid arthritis (ICD-10 - M06.9) 11/01/2024 Chronic depression (ICD-10 - F32.9) 02/14/2025 Hypothyroidism (acquired) (ICD-10 - E03.9) 09/11/2024 OCD (obsessive compulsive disorder) (ICD-10 - F42.9) 09/11/2024 Chronic depression (ICD-10 - F32.9) 02/14/2025 Migraine (ICD-10 - G43.909) 11/01/2024 Morbid obesity (ICD-10 - E66.01) 09/11/2024 Hypothyroidism (acquired) (ICD-10 - E03.9) 02/14/2025 Morbid obesity (ICD-10 - E66.01) 09/11/2024 Migraine (ICD-10 - G43.909) 09/11/2024 Morbid obesity (ICD-10 - E66.01) 09/11/2024 Other The results of stool studies performed in June 2024 was reviewed and noted. Negative for infectious pathogen. Fecal calprotectin was 5330. Laboratory investigations from the emergency room visit on 06/04/2024 as follows: WBC 12 hemoglobin 13 hematocrit 42 MCV 90 platelets 207 BUN 15 creatinine 0.85 bicarbonate 28 albumin 4.2 alkaline phosphatase 66 AST 29 ALT 48 bilirubin 0.3 lipase 35. The report of abdomen/pelvis CT scan performed in [place] on 09/01/2024 was reviewed and noted. The gallbladder, liver, spleen, adrenal glands and kidneys are said to be normal. No evidence of bowel obstruction. The colon is said to be normal. No inflammatory changes in the abdomen or pelvis noted. The differential diagnosis of the patient's epigastric pain Includes erosive gastroesophagitis. Rule out peptic ulcer disease. Rule out proctitis or nonspecific colitis. Schedule the patient for diagnostic EGD and colonoscopy. The above plan was discussed with the patient who expressed understanding. 11/01/2024 Other The reports of EGD and colonoscopy performed on 10/20/2024 were reviewed and noted. EGD was completely normal. Random gastric biopsies were consistent with chronic gastritis. Colonoscopy up to the terminal ileum was significant for mild to moderate diffuse inflammatory changes from the sigmoid colon to the cecum. The rectum was relatively spared. The examined terminal ileum was also completely normal. Random biopsies were taken from the terminal ileum and reported as mild superficial focal acute ileitis. Right colon and left colon biopsies were consistent with chronic active colitis moderately inflamed while the random rectal biopsies were consistent with chronic active colitis mildly inflamed. No evidence of dysplasia in any of the biopsies. The patient has ulcerative colitis. The significance of ulcerative colitis was discussed with the patient. The patient is advised to educate herself about her diagnosis at the [facility] website. The available treatment options were also discussed. The patient is advised to start prescribed prednisone 30 mg daily for at least 2 weeks and then call the clinic with a status update after 2 weeks. She will likely transition to gradual prednisone taper. Mesalamine 4.8 g in a single daily dose was also prescribed. Check TPMT enzyme activity level. The option for immunomodulatory therapy in place of prednisone also discussed with the patient. The option for biologic therapy as well as potential side effects were also discussed with the patient. We will see the patient back in the clinic in 3 months. She is advised to call if she has acute GI complaints or concerns. 02/14/2025 Other TPMT enzyme activity level from October 2024 was within normal limits. The patient's disease appears to be under good control at this time. She is advised to continue mesalamine 4.8 g in a single daily dose. The patient may attempt reducing mesalamine to 3.6 g daily. We will see the patient back in the clinic in 6 months. She is advised to call if she has acute GI complaints or concerns. Plan Of Treatment Pending Test Test Name Order Date Diagnostic Colonoscopy-[id number] 09/11/2024 EGD, Upper GI Diagnostic-33581 Next Appt Details Provider Name:Natanael mera, 08/22/2025 10:00:00 AM, [address], [place], [address], Insurance Providers Payer Name Payer Address Payer Phone Subscriber Number Group Number Insured Name Patient Relationship to Insured Coverage Start Date Coverage End Date BCJOHN Briceño [address] [place] [address] [id number] Branden Patel Self - patient is the insured Medical (General) History Medical History History ICD Code chicken pox pneumonia arthritis anemia bladder infections migraines back trouble hypothyroid hemorrhoids asthma bronchitis anxiety colon polyps depression fatty liver fibromyalgia GERD hashimotos IBS osteoporosis sleep apnea panic attacks OCD spinal stenosis degenerative disc disease Aspergers/Autism Surgical History Surgery Date(Month/Year) bilateral lamenotomy and discectomy 2011 atypical cells removal 2017 colonoscopy 03-06-2011 colonoscopy 11-22-2017 colonoscopy 02/2023 colonoscopy-polyps 1999 thyroid bx right breast bx colonoscopy-chronic active colitis and p roctitis 10-20-2024 EGD-chronic gastritis, mild superficial focal acute ileitis 10-20-2024
--- OUTSIDE RECORDS SUMMARY | 2025-03-29 16:53 | XMS_ITS | Encounter Summary ---
Author Organization [facility] Address [address] [place] [address] Care Team Providers Care Honest John Rocket Crew Member Name Role Phone Jean-Claude Jameson ANNETTE Primary Care Provider [phone] Encounter Details Date Type Department Care Team (Late st Contact Info) Description 11/16/2015 Nurse Triage Report [id number] ABSTRACTION Alycia Guzman, RN Social History Tobacco Use Types Packs/Day Years Used Date Smoking Tobacco: Never Smokeless Tobacco: Never Alcohol Use Standard Drinks/Week Comments No 0 (1 standard drink = 0.6 oz pur e alcohol) Comments No Sex and Gender Information Value Date Recorded Sex Assigned at Not on file 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 Report feedback to Dr. Moya. Associated Symptoms: throat feels swollen inside , difficulty swallowing solids Onset: 2 days ago Location: throat, both ears Pain Assessment: 1 - 10 with 10 being the most severe pain throat and ear pain 8 constantly Treatment so far for current presenting problem: motrin, nyquil , cipro ( from feed store) History (Clinical Problems): polycystic ovarian sx, migraine, fibromyalgia, disc dx, IBS History (Oncology/Hematology Diagnosis): none Medications: cipro started 2 days ago, tramadol, diclofenic, aldactone, rantidine, clariten singular, sprintec, estradiol, klonipen Medication reactions: demerol, versed, macrodantin, paxil, xanax, propanolol, amoxil, omicef, imitrex <<<<<<<< TRIAGE NOTE >>>>>>>> Triage Note: Linen Supervisor Alycia Guzman added this note on Nov 16 2015 9:56PM: Will call back if sx worsen <<<<<<<< TRIAGE/OUTCOME >>>>>>>> Guideline Title: Sore Throat or Hoarseness Recommended Disposition: Provide Home/Self Care Physician Contacted: No All other situations ? YES documented in this encounter Plan of Treatment Not on file documented as of this encounter Visit Diagnoses Not on filedocumented in this encounter Care Teams Honest John Rocket Crew Member Relationship Specialty Start Date End Date Jean-Claude Jameson, ANNETTE [address] [place] [phone] PCP - General NURSE PRACTITIONER 09/06/18 documented as of this encounter
--- OUTSIDE RECORDS SUMMARY | 2025-03-29 16:53 | XMS_ITS | Clinical Summary ---
Author Organization [facility] Address [address] [place] [address] Care Team Providers Care Computer Systems Architect Name Role Phone Jean-Claude Jameson APRN Primary Care Provider Allergies Active Allergy Reactions Criticality Noted Date [...] it and felt like she couldn't breathe. [place] like throat swelled. Rizatriptan Swelling Low 10/05/2016 Sumatriptan Succinate Rash Low 04/21/2012 Medications * This document contains information received from the source organization and may not represent a complete record from that organization. spironolactone (ALDACTONE) 50 mg tablet Take 1 Tablet (50 mg) by mouth 2 times daily. 60 Tablet 06/15/2016 Active metaxalone (SKELAXIN) 800 mg tablet Take 1 Tablet (800 mg) by mouth daily. 30 Tablet 3 02/04/2017 Active ondansetron (ZOFRAN) 4 mg Tablet Take 1 Tablet (4 mg) by mouth every 6 hours as needed for Nausea/Emes is. 10 Tablet 2 04/12/2017 Active montelukast (SINGULAIR) 10 mg tablet Take 1 Tablet (10 mg) by mouth daily. 30 Tablet 11 07/06/2017 Active traMADol (ULTRAM) 50 mg tablet TAKE ONE TABLET BY MOUTH FOUR TIMES DAILY NEEDED. 60 Tablet 07/06/2017 Active JUNEL 1.5/30, 21, 1.5-30 mg-mcg tabletIndication s:Menstrual migraine without status migrainosus, not intractable,[place] rrhagia with irregular cycle TAKE 1 TABLET BY MOUTH ONCE A DAY 21 Tablet 09/06/2017 Active diltiaZEM (CARDIZEM LA) 180 mg Extended Release 24 hour tabletIndication s:Tachycardia,Fa kimberly history of thyroid disease Take 180 mg by mouth daily. Active digoxin (LANOXIN) 250 mcg/5 mL SolutionIndicati ons:Tachycardia, Family history of thyroid disease Take 125 mcg by mouth daily. Active raNITIdine (ZANTAC) 150 mg tablet Take 150 mg by mouth 2 times daily. Active Active Problems Problem Noted Date Diagnosed Date Tachycardia 09/02/2018 Family history of thyroid disease 09/02/2018 Fibromyalgia syndrome 11/25/2015 Morbid obesity with BMI of 40.0-44.9, adult 09/03 Menstrual migraine without s tatus migrainosus, not intractable 09/24/2015 Breast cyst 09/24/2015 DDD (degenerative disc disease), lumbar 05/12/20 12 Overview (05/12/2012): L3-4, 4-5, 5-1 Chronic midline low back pain with sciatica 04/04 Resolved Problems Problem Noted Date Diagnosed Date Resolved Date Herniated lumbar intervertebral disc 06/21/2012 11/20/2014 Herniated lumbar intervertebral disc 05/12/2012 10/26/2014 Overview (05/12/2012): L4-5 > L5-S1 > L3-4 Thoracic or lumbosacral neur itis or radiculitis 05/12/2012 11/20/2014 Overview (05/12/2012): Bilateral lower extremities Stenosis, spinal, lumbar 05/12/2012 Overview (05/12/2012): Severe central and bilateral lateral recess L4-5 and L5-S1 Ruptured disk 04/21/2012 05/12/2012 Family History Medical History Relation Name Comments Hypertension Father Hypertension Maternal Grandmother Healthy Mother Cancer Paternal Grandmother Hypertension Paternal Grandmother Relation Name Status Comments Father Alive Maternal Grandmother Alive Mother Alive Paternal Grandmother Alive Social History Tobacco Use Types Packs/Day Years Used Date Smoking Tobacco: Never Smokeless Tobacco: Never Tobacco Cessation:Counseling Given: Yes Alcohol Use Standard Drinks/Week Comments No 0 (1 standard drink = 0.6 oz pur e alcohol) Comments No Sex and Gender Information Value Date Recorded Sex Assigned at Not on file 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 Gender Identity Not on file Sexual Orientation Not on file Occupation Industry Job Start Date Job End Date Not on file Not on file Not on file Not on file Not on file Not on file Not on file Not on file Last Filed Vital Signs Vital Sign Reading Time Taken Comments Blood Pressure 122/78 11/16/2018 3:22 PM CDT Pulse 102 11/16/2018 3:22 PM CDT Temperature 37 C (98.6 F) 11/08/2018 2:46 PM CDT Respiratory Rate 16 11/08/2018 3:30 PM CDT Oxygen Saturation 98% 11/08/2018 3:30 PM CDT Inhaled Oxygen Concentration - - Weight 139.7 [...] SMEAR 2023 09/24/2015 INFLUENZA VACCINE (#1) 2025 09/03/2018 Procedures Procedure Name Priority Date/Time Associated Diagnosis Comments CERV/VAG CYTOPATH, THIN PREP W/RFLX HPV Routine 09/24/2015 10:00 AM CDT Encounter for gynecological examination without abnormal finding from Last 3 Months or Most Recently Relevant to Health Maintenance Results * CERV/VAG CYTOPATH, THIN PREP W/RFLX HPV (09/24/2015 10:00 AM CDT) CASE REPORT Gynecologic Cytology Report Case: [id number] Authorizing Provider: Val Hernandez DO Collected: 09/24/2015 1000 Ordering Location: [facility] Received: 09/27/2015 1125 Isabel[address] Kinney First Screen: Janey Vines Rescreen: Lyn Luo Specimen: LB PAP TP W/RFLX HPV PROT, Endocervical 10/03/2015 10:08 AM T [facility] Hvac Commercial Salesperson Specimen Adequacy Satisfactory for evaluation, endocervical/mahoney sformation zone component present 10/03/2015 10:08 AM T [facility] Hvac Commercial Salesperson General Categorization Negative For Intraepithelial Lesion Or Malignancy 10/03/2015 10:08 AM T [facility] Hvac Commercial Salesperson Interpretation Negative For Intraepithelial Lesion Or Malignancy 10/03/2015 10:08 AM T [facility] Verified by Lyn Luo on 10/03/2015 at 1008 CDT Comment: Routine follow-up is suggested. Hvac Commercial Salesperson Previous Pap Date 10/03/2015 10:08 AM T [facility] Comment:no records GynLMP 09/09/15 10/03/2015 10:08 AM T [facility] Hvac Commercial Salesperson Educational Note 10/03/2015 10:08 AM T [facility] Comment: Gynecological cytology is a screening procedure subject to both false negative and false positive results. It is most reliable when a satisfactory sample is obtained on a regular repetitive basis. Results must be interpreted in the context of historic and current clinical information. Recommend patient management according to the 2012 ASCCP Consensus Guidelines, ([place]: Cancer J Clin, 62(3); 147-172,2012) EMBEDDED IMAGE 10/03/2015 10:08 AM T [facility] Endocervical (Endocervical) 09/24/2015 10:00 AM CDT 09/27/2015 11:25 AM CDT Val Hernandez DO PATHOLOGY/CYTOLOGY ORDERABLES Fi nal Result [facility] CLIA# [id number] [place] [address] from Last 3 Months or Most Recently Relevant to Health Maintenance Insurance POS II POS II Advance Directives For more information, please contact: [phone] * Full Code (Latest Code Status on File) Date Activated Date Inactivated Comments 06/21/2012 5:26 PM 06/24/2012 12:46 PM * Full Code Date Activated Date Inactivated Comments 06/21/2012 1:15 PM 06/21/2012 5:26 PM * Full Code Date Activated Date Inactivated Comments 06/21/2012 11:25 AM 06/21/2012 1:15 PM Care Teams Computer Systems Architect Relationship Specialty Start Date End Date Jean-Claude Jameson APRN [address] [phone] PCP - General NURSE PRACTITIONER 09/06/18
--- OUTSIDE RECORDS SUMMARY | 2025-03-29 16:53 | XMS_ITS | Encounter Summary ---
Author Organization [facility] Address [address] [place] [address] Care Team Providers Care Flatwork Finisher Name Role Phone Jean-Claude Jameson ANNETTE Primary Care Provider [phone] Encounter Details Date Type Department Care Team (Late st Contact Info) Description 10/05/2015 Nurse Triage Report [id number] ABSTRACTION Alycia Guzman, RN Social History Tobacco Use Types Packs/Day Years Used Date Smoking Tobacco: Never Smokeless Tobacco: Never Alcohol Use Standard Drinks/Week Comments No 0 (1 standard drink = 0.6 oz pur e alcohol) Comments No Sex and Gender Information Value Date Recorded Sex Assigned at Not on file 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 Val Hernandez Associated Symptoms: leaking dark colored urine , foul smell with urinatiion Onset: 2 days ago Location: vaginal Pain Assessment: 1 - 10 with 10 being the most severe pain none Treatment so far for current presenting problem: fish antibiotics ( keflex) 250 mg 2 tid started today, liquids History (Clinical Problems): polycystic ovarian sx, chronic back pain History (Oncology/Hematology Diagnosis): none Medications: cymbalta, diclofenac, tramadol spironlactone, singular, klonipam, monessa BCP, premarin, clariten, zantac, tylenol Medication reactions: imitrex, macrodantin, demerol, versed, paxil, prozac, propanolol, xanax, amoxil, omnicef, niacin <<<<<<<< TRIAGE NOTE >>>>>>>> Triage Note: Desktop Publisher Alycia Guzman added this note on Oct 05 2015 11:29AM: Will go to local walk in clinic now <<<<<<<< TRIAGE/OUTCOME >>>>>>>> Guideline Title: Urinary Symptoms - Female Recommended Disposition: See Provider within 24 hours Original Inclination: Seek Care in [facility] Physician Contacted: No Has one or more urinary tract symptoms AND has not been previously evaluated ? YES documented in this encounter Plan of Treatment Not on file documented as of this encounter Visit Diagnoses Not on filedocumented in this encounter Care Teams Flatwork Finisher Relationship Specialty Start Date End Date Jean-Claude Jameson, ADVERTISING COPYWRITER [address] [place] [phone] PCP - General NURSE PRACTITIONER 09/06/18 documented as of this encounter
--- OUTSIDE RECORDS SUMMARY | 2025-03-29 16:53 | XMS_ITS | Encounter Summary ---
Author Organization [facility] Address [address] [place] [address] Care Team Providers Care Heating And Ventilation Engineer Name Role Phone Jean-Claude Jameson ANNETTE Primary Care Provider [phone] Reason for Referral * Radiology Services (Routine) - Closed Specialty Diagnoses / Procedures Referred By Faisal t Referred To Contact Diagnoses Lumbosacral radiculitis Procedures XR FLUORO NEEDLE GUIDANCE SPINE Sharon Hoffman DO [address] [facility] [place] [address] Phone: tel: fax: Referral ID Status Reason Start Date Expiration Date Visits Re quested Visits Authorized [id number] Closed 11/08/2018 12/09/2019 1 1 Encounter Details Date Type Department Care Team (Late st Contact Info) Description 11/08/2018 Ancillary Orders [facility] Pain Management Procedures [place] [address] [facility] [place] [address] Sharon Hoffman DO [address] [address] Lumbosacral radiculitis Social History Tobacco Use Types Packs/Day Years Used Date Smoking Tobacco: Never Smokeless Tobacco: Never Alcohol Use Standard Drinks/Week Comments No 0 (1 standard drink = 0.6 oz pur e alcohol) Comments No Sex and Gender Information Value Date Recorded Sex Assigned at Not on file 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 Exam was auto-finalized. Sharon Hoffman DO DIAGNOSTIC IMAGING ORDERABLE S Final Result documented in this encounter Visit Diagnoses Diagnosis Lumbosacral radiculitis Thoracic or lumbosacral neuritis or radiculitis, unspecified Lumbosacral radiculitis Thoracic or lumbosacral neuritis or radiculitis, unspecified documented in this encounter Care Teams Heating And Ventilation Engineer Relationship Specialty Start Date End Date Jean-Claude Jameson, RESTAURANT [employer] [address] [phone] PCP - General NURSE PRACTITIONER 09/06/18 documented as of this encounter
--- OUTSIDE RECORDS SUMMARY | 2025-03-29 16:53 | XMS_ITS | Encounter Summary ---
Author Organization [facility] Address [address] [place] [address] Care Team Providers Care [facility] Shift Lead Name Role Phone Jean-Claude Jameson ANNETTE Primary Care Provider [phone] Encounter Details Date Type Department Care Team (Late st Contact Info) Description 10/05/2015 Nurse Triage Report [id number] ABSTRACTION Britni Dixon Social History Tobacco Use Types Packs/Day Years Used Date Smoking Tobacco: Never Smokeless Tobacco: Never Alcohol Use Standard Drinks/Week Comments No 0 (1 standard drink = 0.6 oz pur e alcohol) Comments No Sex and Gender Information Value Date Recorded Sex Assigned at Not on file 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 Report feedback to Dr. Val Hernandez. (Courtesy Callback x1) <<<<<<<< TRIAGE NOTE >>>>>>>> <<<<<<<< TRIAGE/OUTCOME >>>>>>>> Guideline Title: Answering Service Recommended Disposition: No Contact Physician Contacted: No Message left on identifiable voice mail. ? YES documented in this encounter Plan of Treatment Not on file documented as of this encounter Visit Diagnoses Not on filedocumented in this encounter Care Teams [facility] Shift Lead Relationship Specialty Start Date End Date Jean-Claude Jameson, RESIDENTIAL HOUSEKEEPER [address] [phone] PCP - General NURSE PRACTITIONER 09/06/18 documented as of this encounter
[2025-03-29 17:23] VITALS: BP 156/100; PULSE 108; O2SAT 100
[2025-03-29 17:33] LABS: Troponin(5th) Baseline < 6 ng/L (0-10)
[2025-03-29 17:38] LABS: Alanine Aminotransferase 21 U/L (0-33); Albumin Level 4.2 g/dL (3.5-5.2); Alkaline Phosphatase 76 U/L (35-105); Anion Gap 14.9 (5-19); Aspartate Amino Transferase 18 U/L (0-32); Blood Urea Nitrogen 11 mg/dL (6-20); Calcium 8.8 mg/dL (8.5-10.5); Carbon Dioxide 24 mmol/L (22-29); Chloride 105 mmol/L (98-107); Creatinine Clr Calc Pharmacy 180.0815; Globulin 2.5 g/dL (1.3-4.6); Glucose 77 mg/dL (65-115); Osmolality Calculated 288 mOsm/kg (285-295); Potassium 3.9 mmol/L (3.5-5.1); Sodium 140 mmol/L (136-145); Total Protein 6.7 g/dL (6.6-8.7)
== END 2025-03-29 18:07 | disposition home or self-care (01) ==
PROVIDERS: Emergency Provider Emergency Medicine; PCP Physician Assistant
DX: R07.89 Other chest pain (principal); R00.0 Tachycardia, unspecified
CPT/HCPCS: 36415; 80053; 84484; 85025; 93005; 99284; J9999